=== PATIENT | female | born 1945 | race Caucasian/White ===

== ENCOUNTER 2018-11-10 06:37 | Inpatient (IN) ==
--- NOTE | 2018-11-02 16:31 | PAT Medication Instructions ---
Medication Instructions Date of Service November 02, 2018 Home Medications acetaminophen [Tylenol] 650 mg PO Q6H NEEDED adalimumab [Humira] 1 dose SUBCUT DIRECTED alendronate 70 mg PO WK aspirin [Aspir-81] 81 mg PO HS atorvastatin 20 mg PO HS calcium carbonate-vitamin D3 2 tab PO HS cholecalciferol (vitamin D3) 4,000 unit PO HS clomipramine 75 mg PO HS docusate sodium [Stool Softener] 100 mg PO QAM ibuprofen [Advil] 400 mg PO QID NEEDED leflunomide 20 mg PO QAM levothyroxine 25 mcg PO QAM meloxicam 15 mg PO Q2D multivitamin 1 tab PO HS phenylephrine HCl [Zia-Synephrine] 2 spray INTRANASAL DAILY NEEDED sennosides-docusate sodium [Stool Softener-Laxative] 1 tab PO QAM turmeric 500 mg PO HS tramadol 50 mg PO Q6H as needed Continue as directed adalimumab [Humira] 1 dose SUBCUT DIRECTED alendronate 70 mg PO WK ASK your surgeon for instructions ibuprofen [Advil] 400 mg PO QID NEEDED meloxicam 15 mg PO Q2D ASK your prescriber and surgeon aspirin [Aspir-81] 81 mg PO HS leflunomide 20 mg PO QAM STOP taking 2 weeks before surgery turmeric 500 mg PO HS DO NOT take the morning of surgery docusate sodium [Stool Softener] 100 mg PO QAM phenylephrine HCl [Zia-Synephrine] 2 spray INTRANASAL DAILY NEEDED sennosides-docusate sodium [Stool Softener-Laxative] 1 tab PO QAM Take morning of surgery With a small sip of water, OTHERWISE NOTHING TO EAT OR DRINK AFTER MIDNIGHT: acetaminophen [Tylenol] 650 mg PO Q6H NEEDED levothyroxine 25 mcg PO QAM tramadol 50 mg PO Q6H as needed Take evening before surgery acetaminophen [Tylenol] 650 mg PO Q6H NEEDED atorvastatin 20 mg PO HS calcium carbonate-vitamin D3 2 tab PO HS cholecalciferol (vitamin D3) 4,000 unit PO HS multivitamin 1 tab PO HS clomipramine 75 mg PO HS tramadol 50 mg PO Q6H as needed Other Notes If you have any questions please call us at [phone] or [phone] or [phone] or [phone]
--- NOTE | 2018-11-03 10:51 | Anesthesiology Consultation ---
Date of Service November 03, 2018 Assessment & Plan (1) Encounter for pre-operative examination: Chart Review Chart Review: Acceptable Risk for Surgery and Patient seen in Pre Admission Testing Consults Requested none Note sent to PCP re: anemia and EKG. (11/04) Response from PCP on 11/04 states that patient has known anemia that is stable compared to labs from 07/2018. Patients EKG is stable when compared to EKG's from 10/29. Patient also had repeat labs on 11/04 and sodium increased to 133. Teaching & Discussion Pre-Anesthesia Teaching/Discussion Notes: Instructed NPO after midnight before surgery, except medications with 15 cc of water. Medication instructions provided according to the PAT guidelines. History Surgery Operation Date: 11/10/18 10:05 Proposed Procedures p L1-L2 Lumbar Decompression - Steve Chavarria DO Height/Weight Height: 5 ft 1 in Weight: 48.1 kg Allergies Allergy/AdvReac Type Severity Reaction Status Date / Time No Known Allergies Allergy Verified 10/30/18 09:47 Medications Home Medications Medication Instructions Recorded Confirmed Last Taken acetaminophen [Tylenol] 650 mg PO Q6H PRN 10/30/18 10/30/18 Unknown adalimumab [Humira] 1 dose SUBCUT UD 10/30/18 10/30/18 Unknown alendronate 70 mg PO WK 10/30/18 10/30/18 Unknown aspirin [Aspir-81] 81 mg PO HS 10/30/18 10/30/18 Unknown atorvastatin 20 mg PO HS 10/30/18 10/30/18 Unknown calcium carbonate-vitamin D3 2 tab PO HS 10/30/18 10/30/18 Unknown [Calcium 600 + D(3)] cholecalciferol (vitamin D3) 4,000 unit PO HS 10/30/18 10/30/18 Unknown [Vitamin D3] clomipramine 75 mg PO HS 10/30/18 10/30/18 Unknown docusate sodium [Stool Softener] 100 mg PO QAM 10/30/18 10/30/18 Unknown ibuprofen [Advil] 400 mg PO QID PRN 10/30/18 10/30/18 Unknown leflunomide 20 mg PO QAM 10/30/18 10/30/18 Unknown levothyroxine 25 mcg PO QAM 10/30/18 10/30/18 Unknown meloxicam 15 mg PO Q2D 10/30/18 10/30/18 Unknown multivitamin 1 tab PO HS 10/30/18 10/30/18 Unknown phenylephrine HCl [Zia-Synephrine 2 spray INTRANASAL DAILY PRN 10/30/18 Unknown (phenylephrine)] sennosides-docusate sodium [Stool 1 tab PO QAM 10/30/18 10/30/18 Unknown Softener-Laxative] turmeric 500 mg PO HS 10/30/18 10/30/18 Unknown tramadol 50 mg PO Q6H PRN 11/03/18 11/03/18 Unknown Past Medical History Medical History Anemia HX Back pain PAIN TO LEFT LEG/FOOT Depression Hiatal hernia History of tooth extraction WISDOM TEETH Hyperlipidemia Hypotension HX Hypothyroidism Nausea and vomiting after administration of anesthetic agent OCD (obsessive compulsive disorder) Ovarian cyst REMOVAL Rheumatoid arthritis SOB (shortness of breath) on exertion Past Family History Family History Grandmother (Paternal) Family history of diabetes mellitus Father Family history of diabetes mellitus Past Surgical History Surgical History History of appendectomy History of bilateral tubal ligation History of cataract surgery R/L History of colonoscopy History of dilatation and curettage X 2 History of foot surgery RIGHT FOOT HAMMERTOES REPAIR Past Anesthesia History No Hx of Anesthesia Complications and No Family Hx of Anesthesia Complications History of PONV Yes Motion Sickness Screening History of Motion Sickness: No Social History Smoking Status: Never smoker Do You Dip or Chew Tobacco: No Hx Alcohol Use: No Hx Substance Use: No Exercise / Class Metabolic Activity II 4-5 Yardwork/Stairs/Walk up hill ([place] in the summer. Was going to the gym 3x week since mid September. Able to climb FOS. Denies CP (other than from hiatal hernia). Does get SOB with activity. ) Review of Systems Patient denies chest pain, shortness of breath, reflux, cough, wheezing, palpitations. +HECK +joint pain (knees, hands) Physical Exam Vital Signs BP: 137/91 P: 78 R: 20 T: 97.9 SPO2: 98% on RA Constitutional anxious ENMT Mouth: + dental restorations Thyromental Distance: < 3.5 Finger Breadths (2.5) Mallampati Class: III Neck normal visual inspection and trachea midline; neck extension not limited Respiratory normal respiratory effort Auscultation: lungs clear to auscultation bilaterally Cardiovascular Rate/Rhythm: regular rate and regular rhythm Heart Sounds: no murmur Vessels: no carotid bruit Neurologic moves all extremities Psychiatric Orientation: alert and oriented x 3 Testing Electrocardiogram Date: 11/03/18 Findings: + NSR @ (74) Left anterior fascicular block. Nonspecific T wave abnormality. Chest X-Ray Date: 11/03/18 Findings: + NAD FINDINGS: Cardiomediastinal and hilar silhouettes are within normal limits. Calcification the thoracic aortic arch. Lungs are hyperinflated. There is no pneumothorax, pleural effusion, focal airspace consolidation or overt pulmonary edema. Degenerative changes of the shoulders and spine with demineralized appearance of the bones. IMPRESSION: Hyperinflation without acute process. Echocardiogram Date: 01/08/18 EF: 55% LV Function: normal Normal LV size and systolic function. Thickened aortic valve leaflets with no significant stenosis or regurgitation. Normal RV size and function. Stress Test Date: 12/22/17 Type: exercise Findings: + WNL Resting EF: 55-60% Resting LV Function: normal Resting RWMA: + none Valvular Disease: no significant valvular disease The patient exercised on the Claude protocol for 4 minutes and 15 seconds, achieving 7 METs. Achieved 98% MPHR. No significant ST segment deviations or arrhythmias. Did have left sided chest discomfort at rest, which did not change during exercise. She had increasing shortness of breath and fatigue during exercise which caused her to stop exercise. Has a reduced exercise tolerance. No ECG evidence of ischemia. No echocardiographic evidence of prior infarction or ischemia. Cervical Spine Date: 11/03/18 IMPRESSION: No evidence of dynamic subluxation on flexion or extension positioning. No abnormal widening of the predental interval. Mild degenerative changes at C5-6. Laboratory Results 11/03/18 12:14 11/03/18 12:14 Blood Type O Positive 11/03/18 12:14 Antibody Screen NEGATIVE 11/03/18 12:14 PT 10.2 Seconds (9.0-12.0) 11/03/18 12:14 INR 1.0 (0.9-1.1) 11/03/18 12:14 APTT 24.6 Seconds (21.0-31.0) 11/03/18 12:14 Urine Color Yellow 11/03/18 Unknown Urine Appearance Clear (Clear) 11/03/18 Unknown Urine pH 7.5 (4.5-7.5) 11/03/18 Unknown Ur Specific [place] 1.007 (1.000-1.030) 11/03/18 Unknown Urine Protein Negative (Negative) 11/03/18 Unknown Urine Glucose (UA) Negative (Negative) 11/03/18 Unknown Urine Ketones Negative (Negative) 11/03/18 Unknown Urine Nitrite Negative (Negative) 11/03/18 Unknown Ur Leukocyte Esterase 1+ (Negative) H 11/03/18 Unknown Urine WBC (Auto) 1-5 /hpf (0-5) 11/03/18 Unknown Urine RBC (Auto) 0-4 /hpf (0-4) 11/03/18 Unknown U Hyaline Cast (Auto) 1-5 /lpf (0-5) 11/03/18 Unknown U Epithel Cells (Auto) 20-30 /lpf (0-5) H 11/03/18 Unknown Urine Bacteria (Auto) Negative (Negative) 11/03/18 Unknown
--- NOTE | 2018-11-03 12:48 | XRay Report ---
XR chest Pre-admission PA/Lat HISTORY: 73 years-old Female PAT preoperative exam. No acute chest complaints COMPARISON: None available TECHNIQUE: PA and lateral views of the chest FINDINGS: Cardiomediastinal and hilar silhouettes are within normal limits. Calcification the thoracic aortic a rch. Lungs are hyperinflated. There is no pneumothorax, pleural effusion, focal airspace consolidatio n or overt pulmonary edema. Degenerative changes of the shoulders and spine with demineralized appear ance of the bones. IMPRESSION: Hyperinflation without acute process. The above report was generated using voice recognition software. It may contain grammatical, syntax o r spelling errors. Electronically signed by: Harrison Vann M.D. 11/03/2018 12:46 PM
[2018-11-03 13:03] LABS: Appearance Urine Clear (Clear); Bacteria Urine Automated Negative (Negative); Bilirubin Urine Negative (Negative); Color Urine Yellow; Epithelial Cell Urine Auto 20-30 /lpf (0-5); Glucose Urine UA Negative (Negative); Ketones Urine Negative (Negative); Leukocyte Esterase Urine 1+ (Negative); Nitrite Urine Negative (Negative); Protein Urine Negative (Negative); Specific Gravity Urine 1.007 (1.000-1.030); Urobilinogen Urine Negative (Negative); pH Urine 7.5 (4.5-7.5)
[2018-11-03 13:03] LABS: Basophils # (auto) 0.08 K/uL (0-0.2); Basophils % (auto) 1.8 %; Eosinophils # (auto) 0.13 K/uL (0-0.5); Eosinophils % (auto) 2.8 %; Hematocrit (blood only) 30.6 % (37-47); Hemoglobin 10.4 g/dL (12.0-16.0); Immature Granulocytes # (auto) 0.01 K/uL (0.00-0.02); Immature Granulocytes % (auto) 0.2 %; Lymphocytes # (auto) 1.16 K/uL (1.2-3.4); Lymphocytes % (auto) 25.4 %; Mean Corpuscular Volume 101.7 fL (80-100); Mean Platelet Volume 8.9 fL (7.4-10.4); Monocytes # (auto) 0.82 K/uL (0.11-0.59); Monocytes % (auto) 17.9 %; Neutrophils # (auto) 2.37 K/uL (1.4-6.5); Neutrophils % (auto) 51.9 %; Platelet Count 229 K/uL (130-400); RDW Coefficient of Variation 13.7 % (11.5-14.5); RDW Standard Deviation 50.7 fL (36.4-46.3); Red Blood Count 3.01 M/uL (4.2-5.4); White Blood Count 4.57 K/uL (4.8-10.8)
[2018-11-03 13:09] LABS: Calcium 9.3 mg/dl (8.5-10.1); Est GFR (African American) 85.4; Est GFR (Non-African American) 73.7
[2018-11-03 13:18] LABS: Partial Thromboplastin Ratio 0.9; Partial Thromboplastin Time 24.6 Seconds (21.0-31.0); Prothrombin Time 10.2 Seconds (9.0-12.0)
--- NOTE | 2018-11-03 13:46 | XRay Report ---
XR cervical spine 2 or 3V CLINICAL HISTORY: 73 years-old Female presenting with preoperative assessment, RA. TECHNIQUE: Lateral views of the cervical spine in neutral, flexion, extension positioning were obtain ed. COMPARISON: None. FINDINGS: Neutral lateral view of the cervical spine demonstrate slight straightening of normal cervical lordos is. Vertebral bodies maintain normal height and alignment. Moderate intervertebral disc height loss a t C5-6, where there is the greatest degree of degenerative change with a disc osteophyte complex. No posterior bony spurring. No significant facet arthropathy. Normal predental interval. No prevertebral soft tissue swelling. No radiographic evidence of fracture. On flexion positioning, expected slight reversal of normal cervical lordosis with slight kyphotic cur vature. No evidence of dynamic subluxation. No widening of the predental interval. On extension positioning, expected slight exaggeration of normal cervical lordosis. No evidence of dy namic subluxation. No widening of the predental interval. IMPRESSION: No evidence of dynamic subluxation on flexion or extension positioning. No abnormal widening of the p redental interval. Mild degenerative changes at C5-6. Electronically signed by: Harvinder Kyle M.D. 11/03/2018 1:45 PM
[~2018-11-10 06:37] MED LIST: ACETAMINOPHEN 500 MG TAB PO SCH; CEFAZOLIN 1000MG 1,000 MG/7.5 ML SYR IV SCH; CeleBREX 200 MG CAP PO SCH; GABAPENTIN 300 MG PO SCH; LR 15ML/HR IV SCH
[2018-11-10] MEDS ORDERED: ONDANSETRON INJ 2 MG/ML 2 ML VIAL ONE (09:06)
[2018-11-10] MEDS ORDERED: LIDOCAINE HCL 2% 2 ML VIAL/AMP(20MG/ML) INFIL ONE (09:06)
[2018-11-10] MEDS ORDERED: fentaNYL citrate 100 MCG/2 ML VIAL ONE ×2 (09:06→12:06)
[2018-11-10] MEDS ORDERED: CISATRACURIUM BESYLATE IV SOLN 2 MG/ML 10 ML VIAL IV ONE (09:06)
[2018-11-10] MEDS ORDERED: DEXAMETHASONE SOD INJ 4 MG/ML VIAL ONE ×2 (09:06)
[2018-11-10] MEDS ORDERED: PROPOFOL IV EMULSION 10 MG/ML 20 ML VIAL IV ONE (09:06)
[2018-11-10] MEDS ORDERED: MIDAZOLAM HCL 1 MG/ML 2ML VIAL ONE (09:06)
--- NOTE | 2018-11-10 10:07 | History & Physical Bridge Note ---
Date of Service November 10, 2018 History & Physical Bridge Note I have examined the patient, reviewed the History & Physical and in the interval since the performance of the History & Physical I have noted the following changes of clinical significance: no changes noted
--- NOTE | 2018-11-10 10:08 | History & Physical Report ---
Date of Service November 10, 2018 Assessment & Plan (1) Lumbar disc herniation with radiculopathy: Lumbar decompression and fusion L1 -2 Present on Admission?: Yes History of Present Illness Chief Complaint: Back and leg pain Primary Care Provider: Melissa Kline This is a 73-year-old female with chronic persistent left leg and back pain. After failing extensive course of nonoperative care is here for surgical intervention. Allergies Allergy/AdvReac Type Severity Reaction Status Date / Time No Known Allergies Allergy Verified 11/10/18 07:43 Home Medications Home Medications Medication Instructions Recorded Confirmed Type acetaminophen [Tylenol] 650 mg PO Q6H PRN 10/30/18 11/10/18 History adalimumab [Humira] 1 dose SUBCUT UD 10/30/18 11/10/18 History alendronate 70 mg PO WK 10/30/18 11/10/18 History aspirin [Aspir-81] 81 mg PO HS 10/30/18 11/10/18 History atorvastatin 20 mg PO HS 10/30/18 11/10/18 History calcium carbonate-vitamin D3 2 tab PO HS 10/30/18 11/10/18 History [Calcium 600 + D(3)] cholecalciferol (vitamin D3) 4,000 unit PO HS 10/30/18 11/10/18 History [Vitamin D3] clomipramine 75 mg PO HS 10/30/18 11/10/18 History docusate sodium [Stool Softener] 100 mg PO QAM 10/30/18 11/10/18 History ibuprofen [Advil] 400 mg PO QID PRN 10/30/18 11/10/18 History leflunomide 20 mg PO QAM 10/30/18 11/10/18 History levothyroxine 25 mcg PO QAM 10/30/18 11/10/18 History meloxicam 15 mg PO Q2D 10/30/18 11/10/18 History multivitamin 1 tab PO HS 10/30/18 11/10/18 History phenylephrine HCl [Zia-Synephrine 2 spray INTRANASAL DAILY PRN 10/30/18 History (phenylephrine)] sennosides-docusate sodium [Stool 1 tab PO QAM 10/30/18 11/10/18 History Softener-Laxative] turmeric 500 mg PO HS 10/30/18 11/10/18 History tramadol 50 mg PO Q6H PRN 11/03/18 11/10/18 History benzonatate 100 mg PO QID PRN 11/10/18 11/10/18 History dextromethorphan-guaifenesin 20 ml PO Q6H PRN 11/10/18 11/10/18 History [Robitussin Cough-Chest Néstor DM] Past Med/Surg History Social History Current Living Situation: Spouse Other Information That Helps Us Care for You: No Feels Safe at Home: Yes Safety Concerns: Feels Safe At This Time Smoking Status: Never smoker Do You Dip or Chew Tobacco: No Hx Alcohol Use: No Hx Substance Use: No Beliefs That Will Affect Care: None Preferred Language: Pashto Communication Ability: Effective Clearing Hand Required: No Physical Exam 2 Vital Signs (Past 24 Hours): Last Vital Signs Temp 36.5 C 11/10/18 07:59 Pulse 92 H 11/10/18 07:59 Resp 18 11/10/18 07:59 BP 150/98 H 11/10/18 07:59 Pulse Ox 99 11/10/18 07:59 Results & Data Medications Administered Acetaminophen (Tylenol) 1,000 mg PO PREOP ANANDA Stop: 11/10/18 18:00 Last Admin: 11/10/18 08:18 Dose: 1,000 mg Celecoxib (Celebrex) 200 mg PO PREOP ANANDA Stop: 11/10/18 18:00 Last Admin: 11/10/18 08:18 Dose: 200 mg Gabapentin (Neurontin) 300 mg PO PREOP ANANDA Stop: 11/10/18 18:00 Last Admin: 11/10/18 08:17 Dose: 300 mg Lactated Ringer's (Lr) 1,000 mls @ 15 mls/hr IV .Q24H ANANDA Stop: 11/11/18 05:59 Last Admin: 11/10/18 08:05 Dose: 15 mls/hr
[2018-11-10] MEDS ORDERED: BACITRACIN INJ 50,000 UNIT VIAL ONE (10:12)
[2018-11-10] MEDS ORDERED: BUPIVACAINE/EPINEPHRINE 0.5% MPF 1:200,000 30 ML VIAL ONE (10:12)
[2018-11-10] MEDS ORDERED: GLYCOPYRROLATE 0.2 MG/ML VIAL ONE (11:01)
[2018-11-10] MEDS ORDERED: NEOSTIGMINE METHYLSULFATE 1 MG/ML 10ML VIAL ONE (11:01)
[2018-11-10] MEDS ORDERED: FLOSEAL HEMOSTATIC MATRIX 10ML TOP ONE (12:15)
[2018-11-10] MEDS ORDERED: PROMETHAZINE HCL 12.5 MG in SODIUM CHLORIDE 0.9% 50 ML IV PRN ×2 (12:21→13:48)
[2018-11-10] MEDS ORDERED: LABETALOL HCL IV 5 MG/ML 20ML IV PRN (12:21)
[2018-11-10] MEDS ORDERED: HYDROmorphone INJ 1 MG/ML SYRINGE IV PRN (12:21)
[2018-11-10] MEDS ORDERED: ATROPINE SULFATE 0.1 MG/ML 10ML SYR IV PRN (12:21)
[2018-11-10] MEDS ORDERED: FLUMAZENIL 0.1 MG/1 ML 10 ML VIAL IV PRN (12:21)
[2018-11-10] MEDS ORDERED: NALOXONE HCL 0.4 MG/1 ML VIAL/CARP IV PRN (12:21)
[2018-11-10] MEDS ORDERED: ONDANSETRON INJ 2 MG/ML 2 ML VIAL IV PRN ×2 (12:21→13:48)
[2018-11-10] MEDS ORDERED: ePHEDrine sulfate 50 MG/ML AMP IV PRN (12:21)
--- NOTE | 2018-11-10 12:25 | Operative Report ---
Post Operative Report Pre & Post Diagnosis Operation Date: 11/10/18 09:35 Pre-Op Diagnosis: Intervertebral Disc Disorders with Radiculopathy Post-Op Diagnosis: Intervertebral Disc Disorders with Radiculopathy Procedure Operation Date: 11/10/18 09:35 Actual Procedures #1 lumbar decompression medial facetectomy discectomy L1-2. #2 posterior spinal fusion L1-2. #3 patient posterior instrumentation L1-2. #4 history of local autograft in the posterior gutters. #5 placement infuse collagen sponge bone mass graft in the posterior gutters at L1-2. Surgeon Steve Chavarria DO [employer] None Estimated Blood Loss 150 Findings Consistent with Post-Op Diagnosis Specimens None Description of Procedure Patient was met with preoperatively case discussed all questions addressed. After informed consent obtained patient was taken to the operative suite underwent intubation and placed in a prone position on the Panda all bony prominences well-padded eyes inspected to ensure no external pressure placed upon the peer at this point the lumbar spine was prepped and draped in a normal sterile fashion. Sharp dissection the assistance of Bovie cautery was performed down to and exposing the lamina and transverse processes of L1-2. From caudal cephalad fashion complete laminectomy of L1-L2 including medial facetectomies foraminotomies also addressing massive disc herniation on the left side that is migrated cephalad. After this complete pedicle screws were placed at L1 and L2 bilaterally with assistance of fluoroscopy and process sophie locked in place. The transverse processes of L1 and L2 burred to subcortical B bone. Infuse collagen sponge mass graft local autograft placed in the posterior gutters. 15 round REMI drain inserted. Incision was then closed with 1 Vicryl fascia 2-0 Vicryl subtenons seen for Monocryl for final skin closure. Steri-Strips sterile dressing placed. Patient will continue to PACU stable condition. I attest to the content of the Intraoperative Record and any orders documented therein. Any exceptions are noted below.
--- NOTE | 2018-11-10 12:41 | Fluoroscopy Report ---
FL lumbar spine 2-3V CLINICAL HISTORY: 73 years-old Female presenting with L1-L2 LUMBAR DECOMPRESSION. TECHNIQUE: 2 fluoroscopic image(s) recorded as part of an intraoperative procedure. COMPARISON: None. FINDINGS/IMPRESSION: Posterior bilateral transpedicular screw and sophie fixation of L1-2 with L1 laminectomy. Levoscoliosis centered at L3-4. Please see surgical report for further details. Fluoroscopy dosage (mGy): 5.08. Fluoroscopy time: 21.4 seconds. Number or time of fluoroscopic spot images: 0. Electronically signed by: Harvinder Kyle M.D. 11/10/2018 12:40 PM
[2018-11-10] MEDS ORDERED: LABETALOL HCL IV 5 MG/ML 20ML IV ONE (12:54)
--- NOTE | 2018-11-10 13:38 | Anesthesiology Progress Note ---
Date of Service November 10, 2018 Anesthesia Post Procedure Vital Signs Vital Signs: Temp Pulse Pulse Resp BP Pulse Ox 11/10/18 13:15 36.2 C L 67 26 H 143/87 H 100 11/10/18 13:05 64 20 151/86 H 100 11/10/18 12:55 86 18 170/96 H 100 11/10/18 12:45 36.7 C 87 10 L 169/89 H 100 11/10/18 07:59 36.5 C 92 H 18 150/98 H 99 Notes Mental Status: alert / awake / arousable Patient Amnestic to Procedure: Yes Nausea / Vomiting: adequately controlled Pain: adequately controlled Airway Patency, RR, SpO2: stable & adequate BP & HR: stable & adequate Hydration State: stable & adequate Anesthetic Complications: no major complications apparent
[2018-11-10] MEDS ORDERED: HYDROmorphone INJ 0.5 MG/0.5 ML SYR IV PRN (13:48)
[2018-11-10] MEDS ORDERED: ACETAMINOPHEN 500 MG TAB PO PRN (13:48)
[2018-11-10] MEDS ORDERED: ALUMINUM/MAGNESIUM SUSP 30 ML UDC PO PRN (13:48)
[2018-11-10] MEDS ORDERED: METOCLOPRAMIDE HCL INJ 5 MG/ML 2 ML VIAL IV PRN (13:48)
[2018-11-10] MEDS ORDERED: LORazepam 0.5 MG TAB PO PRN (13:48)
[2018-11-10] MEDS ORDERED: LORazepam 0.5 MG/1 ML VIAL IV PRN (13:48)
[2018-11-10] MEDS ORDERED: BENZONATATE 100 MG CAPSULE PO PRN (13:48)
[2018-11-10] MEDS ORDERED: SOD PHOSPHATE/SOD BIPHOSPHATE ENEMA 132 ML BTL PR PRN (13:48)
[2018-11-10] MEDS ORDERED: NON-FORMULARY MEDICATION (Acetaminophen [Tylenol] 650 MG) PO PRN (13:48)
[2018-11-10] MEDS ORDERED: ACETAMINOPHEN 1,000 MG/100 ML VIAL IV PRN (13:48)
[2018-11-10] MEDS ORDERED: BISACODYL 10 MG SUPP PR PRN (13:48)
[2018-11-10] MEDS ORDERED: GUAIFENESIN/DEXTROM SYRUP 200MG/20MG 10ML UDC PO PRN (13:48)
[2018-11-10] MEDS ORDERED: ONDANSETRON 4 MG TAB PO PRN (13:48)
[2018-11-10] MEDS ORDERED: OXYCODONE HCL IR 5 MG TAB (IMMEDIATE RELEASE) PO PRN (13:48)
[2018-11-10] MEDS ORDERED: PHENYLEPHRINE 1% NA SPR 15 ML BTL PRN (13:48)
[2018-11-10] MEDS ORDERED: DO NOT ADMINISTER PNEUMOCOCCAL VACCINE PRN (13:48)
[2018-11-10] MEDS ORDERED: DO NOT ADMINISTER FLU VACCINE PRN (13:48)
[2018-11-10] MEDS ORDERED: FAMOTIDINE 20 MG TAB PO PRN (13:48)
[2018-11-10] MEDS ORDERED: MAGNESIUM HYDROXIDE SUSP 30 ML UDC PO PRN (13:48)
[2018-11-10] MEDS ORDERED: TRAMADOL HCL 50 MG TABLET PO PRN (13:48)
[2018-11-10] MEDS: LACTATED RINGER'S 1,000 ML IV SCH ×2 (15:15→20:42)
[2018-11-10] MEDS: CEFAZOLIN 1000MG 1,000 MG/7.5 ML SYR IV SCH (17:30)
[2018-11-10] MEDS: CALCIUM 600MG + VIT D 400 IU TAB PO SCH (20:40)
[2018-11-10] MEDS: ATORVASTATIN 20 MG TAB PO SCH (20:41)
[2018-11-10] MEDS: ASPIRIN 81 MG ECTAB PO SCH (20:41)
[2018-11-10] MEDS: MULTIVITAMIN TAB PO SCH (20:41)
[2018-11-10] MEDS ORDERED: DOCUSATE SODIUM/SENNA 50/8.6MG TAB PO SCH (21:00)
[2018-11-10] MEDS ORDERED: TURMERIC 500 MG PO SCH (21:00)
[2018-11-11] MEDS: CEFAZOLIN 1000MG 1,000 MG/7.5 ML SYR IV SCH (02:20)
[2018-11-11] MEDS: TRAMADOL HCL 50 MG TABLET PO PRN ×3 (02:25→18:22)
[2018-11-11] MEDS: LEVOTHYROXINE SODIUM 25 MCG TABLET PO SCH (05:27)
[2018-11-11] MEDS: POLYETHYLENE (MIRALAX) 17 GM PACK PO SCH ×3 (05:28→18:23)
[2018-11-11] MEDS ORDERED: ALENDRONATE SODIUM 70 MG TAB PO SCH (06:00)
[2018-11-11 07:35] LABS: Basophils # (auto) 0.01 K/uL (0-0.2); Basophils % (auto) 0.1 %; Eosinophils # (auto) 0.03 K/uL (0-0.5); Eosinophils % (auto) 0.3 %; Hematocrit (blood only) 24.6 % (37-47); Hemoglobin 8.1 g/dL (12.0-16.0); Immature Granulocytes # (auto) 0.02 K/uL (0.00-0.02); Immature Granulocytes % (auto) 0.2 %; Lymphocytes # (auto) 1.36 K/uL (1.2-3.4); Lymphocytes % (auto) 15.1 %; Mean Corpuscular Hgb Conc 32.9 g/dL (32-36); Mean Corpuscular Volume 102.5 fL (80-100); Mean Platelet Volume 8.8 fL (7.4-10.4); Monocytes # (auto) 1.17 K/uL (0.11-0.59); Neutrophils # (auto) 6.43 K/uL (1.4-6.5); Neutrophils % (auto) 71.3 %; Platelet Count 225 K/uL (130-400); RDW Coefficient of Variation 14.1 % (11.5-14.5); RDW Standard Deviation 52.4 fL (36.4-46.3); White Blood Count 9.02 K/uL (4.8-10.8)
[2018-11-11 08:02] LABS: BUN Creatinine Ratio 17.4 (10-20); Calcium 8.7 mg/dl (8.5-10.1); Creatinine Clr Calc Pharmacy 43.4 ml/min; Est GFR (African American) 79.3; Est GFR (Non-African American) 68.5; Potassium 4.2 mmol/L (3.5-5.1)
[2018-11-11 08:03] LABS: Macrocytosis Present
[2018-11-11] MEDS: MELOXICAM 7.5 MG TAB PO SCH (08:37)
[2018-11-11] MEDS: DOCUSATE SODIUM/SENNA 50/8.6MG TAB PO SCH (08:38)
[2018-11-11] MEDS: LEFLUNOMIDE 10 MG TAB PO SCH (08:38)
[2018-11-11] MEDS: DOCUSATE SODIUM 100 MG CAP PO SCH (08:38)
[2018-11-11] MEDS ORDERED: Nursing to Pharmacy Communication ONE (12:20)
--- NOTE | 2018-11-11 14:19 | Orthopedic Progress Note ---
Date of Service November 11, 2018 Assessment & Plan (1) Lumbar disc herniation with radiculopathy: This time we will continue physical therapy monitor her REMI output anticipate discharge home in the next few days. Present on Admission?: Yes Subjective Back pain is controlled still some left leg pain but improved. Physical Exam 2 Vital Signs (Past 24 Hours): Last Vital Signs Temp 36.6 C 11/11/18 10:38 Pulse 89 11/11/18 10:38 Resp 16 11/11/18 10:38 BP 101/64 11/11/18 10:38 Pulse Ox 99 11/11/18 12:50 Physical Exam: Patient is in the chair at the bedside. Has good strength testing.
[2018-11-11] MEDS: ASPIRIN 81 MG ECTAB PO SCH (20:29)
[2018-11-11] MEDS: CALCIUM 600MG + VIT D 400 IU TAB PO SCH (20:29)
[2018-11-11] MEDS: CLOMIPRAMINE 75 MG PO SCH (20:30)
[2018-11-11] MEDS: MULTIVITAMIN TAB PO SCH (20:30)
[2018-11-11] MEDS: ATORVASTATIN 20 MG TAB PO SCH (20:30)
[2018-11-12] MEDS: POLYETHYLENE (MIRALAX) 17 GM PACK PO SCH ×4 (00:03→18:03)
[2018-11-12] MEDS: LEVOTHYROXINE SODIUM 25 MCG TABLET PO SCH (05:58)
--- NOTE | 2018-11-12 08:38 | Orthopedic Progress Note ---
Date of Service November 12, 2018 Assessment & Plan (1) Lumbar disc herniation with radiculopathy: We will continue physical therapy today. Monitor REMI output. Anticipate possible discharge home tomorrow. Present on Admission?: Yes Subjective Back pain is controlled leg symptoms steadily improving. Physical Exam 2 Vital Signs (Past 24 Hours): Last Vital Signs Temp 36.6 C 11/12/18 07:03 Pulse 85 11/12/18 07:03 Resp 18 11/12/18 07:03 BP 102/67 11/12/18 07:03 Pulse Ox 97 11/12/18 07:03 Physical Exam: Patient is sitting up at the bedside. Has good strength testing. Appears comfortable.
[2018-11-12] MEDS: DOCUSATE SODIUM 100 MG CAP PO SCH (08:50)
[2018-11-12] MEDS: DOCUSATE SODIUM/SENNA 50/8.6MG TAB PO SCH (08:50)
[2018-11-12] MEDS: LEFLUNOMIDE 10 MG TAB PO SCH (08:51)
[2018-11-12] MEDS: TRAMADOL HCL 50 MG TABLET PO PRN ×2 (08:53→21:15)
[2018-11-12] MEDS: ATORVASTATIN 20 MG TAB PO SCH (21:09)
[2018-11-12] MEDS: MULTIVITAMIN TAB PO SCH (21:09)
[2018-11-12] MEDS: CALCIUM 600MG + VIT D 400 IU TAB PO SCH (21:10)
[2018-11-12] MEDS: CLOMIPRAMINE 75 MG PO SCH (21:10)
[2018-11-12] MEDS: ASPIRIN 81 MG ECTAB PO SCH (21:10)
[2018-11-13] MEDS: POLYETHYLENE (MIRALAX) 17 GM PACK PO SCH ×2 (00:03→06:05)
[2018-11-13] MEDS: LEVOTHYROXINE SODIUM 25 MCG TABLET PO SCH (06:05)
[2018-11-13] MEDS ORDERED: Nursing to Pharmacy Communication ONE (08:13)
[2018-11-13] MEDS: MELOXICAM 7.5 MG TAB PO SCH (08:41)
[2018-11-13] MEDS: DOCUSATE SODIUM 100 MG CAP PO SCH (08:41)
[2018-11-13] MEDS: DOCUSATE SODIUM/SENNA 50/8.6MG TAB PO SCH (08:42)
[2018-11-13] MEDS: LEFLUNOMIDE 10 MG TAB PO SCH (08:42)
[2018-11-13] MEDS: TRAMADOL HCL 50 MG TABLET PO PRN (11:33)
--- NOTE | 2018-11-13 11:50 | Discharge Summary ---
Date of Service November 13, 2018 Admission HPI Per Admitting Provider This is a 73-year-old female with chronic persistent left leg and back pain. After failing extensive course of nonoperative care is here for surgical intervention. Principal Diagnosis Lumbar spinal stenosis Discharge Data Allergies Allergy/AdvReac Type Severity Reaction Status Date / Time No Known Allergies Allergy Verified 11/10/18 07:43 Consultations 11/10/18 13:48 Consult Case Management - Discharge Planning Routine Procedures Performed Operation Date: 11/10/18 09:35 Actual Procedures p L1-L2 Lumbar Decompression and Fusion, Bone Morphogenetic Protein(Not Applicable) - Steve Chavarria DO Ordered Studies 11/10/18 09:35 FL fluoroscopy <1hr Routine FL lumbar spine 2-3V Routine Hospital Course (1) Lumbar disc herniation with radiculopathy: Patient underwent lumbar decompression fusion tolerated this well was taken to orthopedic floor postoperative. Postop day #1 she was up and ambulate nicely. She progressed to postop day #2. Subsequently postop day #3 REMI drain decreased appropriately pain well controlled subsequently discharged home. Total Time Total Time Spent Total Time Spent (In Minutes): Not applicable Discharge Plan Discharge Items Patient Disposition: Home - Self-Care Reason For Visit: Intervertebral Disc Disorders with Radiculopathy Discharge Diagnosis: lumbar stenosis Discharge Goals: Improve function Activity: Per 'Additional Instructions' section Non-emergency contact: Primary Care Provider Call non-emergency contact if: you have any medication questions Follow-up/Referrals: Melissa Kline M.D. [Primary Care Provider] - Diet: Regular Addtl Provider Instructions: ACTIVITY RECOMMENDATIONS: SELF CARE INSTRUCTIONS AFTER THORACIC/LUMBAR FUSIONS 1. You may walk to your tolerance. It is good exercise for your legs and back. Expect some back and intermittent leg aches and pains. 2. You may perform "counter-top" level activities (make a sandwich, nini with a project, etc.). 3. No bending or lifting of more than 10 pounds or back twisting of any nature (roll like a log when turning in bed). 4. You may ride in a car for 20-30 minutes at a time. No driving until after your first visit with your doctor. 5. Frequent changes of position and restricting sitting to 30 minutes at a time will help limit the amount of back spasms and stiffness you may experience. 6. You may discontinue the use of ambulatory aids (cane, crutches, etc.) once your strength and confidence allow. 7. You may dredging inspector the shower and let water strike your incision when you arrive home at least once daily. Do not take a tub bath, sit in a hot tub or go into a swimming pool until after your first recheck in the office. SPECIAL CARE INSTRUCTIONS: VERY IMPORTANT TO READ AND REVIEW A. Your surgical incision has been closed with a cosmetic suture under the skin that will dissolve in about 6 weeks. In 14 days, you can use a pair of clean scissors and cut the suture that is left outside of the skin at the ends of your incision. 1. The small skin tapes can be removed 7 days after surgery if they have not fallen off by that point. 2. You may keep the wound open to air as much as possible to promote healing after post-op day number 5 unless told otherwise by your doctor. 3. If you think the wound looks like it is becoming infected (redness or worsening drainage) and/or you are experiencing fever, chill or worsening back pain and muscle spasms, contact the office so that we may evaluate you as soon as possible. B. Complications are uncommon, but please contact us if you have any signs or symptoms of: 1. wound infection (fever higher than 102.5 degrees F, redness, separation of wound, drainage, or increasing pain from the incision) 2. blood clots in legs (pain, swelling, redness and warmth in legs) 3. urinary tract infection (fever higher than 102.5 degrees F, burning upon urination or increased frequency of urination) 4. nerve problems (inability to walk on your toes or heels, numbness, loss of bowel or bladder control) 5. any other symptoms that concern you C. Please call the office at if you have any concerns or questions about your operation or recovery. D. No smoking! Smoking drastically decreases the chance of a solid fusion. E. Do not take any anti-inflammatory medications (Indocin, Advil, Motrin, Aspirin, Naprosyn, etc.) as these may inhibit the chance of a solid fusion. Tylenol is okay to take for pain. MANAGING PAIN AFTER SPINAL SURGERY 1. Narcotic medication is intended for short-term use and will be provided for surgical pain. Surgical pain usually lasts for a period of 4-6 weeks. Narcotic medication includes Percocet, Vicodin, Darvocet, Tylenol #3 or Lortab. 2. Longer-term pain is more appropriately treated with non-narcotic medication such as Tylenol ES. 3. Muscle spasm is not appropriately treated with narcotics. Muscle relaxers such as Soma, Flexeril or Skelaxin can be used along with Tylenol ES. 4. Remember that we all live with some "aches and pains". This is not unusual or uncommon after an injury or as we get older. a. Back pain is expected and may include muscle spasms for 4 to 6 weeks after surgery. The pain should gradually improve. If the pain worsens for no apparent reason, please contact the office. b. Intermittent leg pain may also be experienced and should not be concerned about unless it worsens for no apparent reason. If so, please contact the office. 5. We will provide appropriate medication within the normal guidelines of their prescribed use. We will also be very cautious and aware of potential abuse and extended duration of patients' medication needs. a. Pain medications are for your comfort and to assist with sleep and rest so that the tissue can heal. They are not provided in order to return to normal activity and should not be used through the day. To do so or worsening pain at night can result from ongoing tissue damage and development of tolerance to the prescribed medicine. 6. Please allow 2-3 days to process refills. Prescriptions will not be mailed but must be picked up at the office. FOLLOW UP VISIT: Keep your scheduled follow-up appointment. Any questions, please call the office at . Prescriptions: New tramadol 50 mg Tablet 50 mg PO Q4H PRN (Reason: Pain, Moderate) Qty: 30 RF: 0 oxycodone 5 mg Tablet 5 mg PO Q4H PRN (Reason: Pain, Severe) Qty: 30 RF: 0 Continue multivitamin Tablet 1 tab PO HS RF: 0 atorvastatin 20 mg Tablet 20 mg PO HS RF: 0 clomipramine 75 mg Capsule 75 mg PO HS RF: 0 meloxicam 15 mg Tablet 15 mg PO Q2D RF: 0 alendronate 70 mg Tablet 70 mg PO WK RF: 0 sennosides-docusate sodium [Stool Softener-Laxative] 8.6-50 mg Tablet 1 tab PO QAM RF: 0 aspirin [Aspir-81] 81 mg Tablet,Delayed Release (Dr/Ec) 81 mg PO HS RF: 0 leflunomide 20 mg Tablet 20 mg PO QAM RF: 0 levothyroxine 25 mcg Tablet 25 mcg PO QAM RF: 0 docusate sodium [Stool Softener] 100 mg Capsule 100 mg PO QAM RF: 0 adalimumab [Humira] 40 mg/0.8 mL Syringe Kit 1 dose subcut UD RF: 0 acetaminophen [Tylenol] 325 mg Capsule 650 mg PO Q6H PRN (Reason: Pain) RF: 0 turmeric 400 mg Capsule 500 mg PO HS RF: 0 calcium carbonate-vitamin D3 [Calcium 600 + D(3)] 600 mg calcium- 200 unit Capsule 2 tab PO HS RF: 0 cholecalciferol (vitamin D3) [Vitamin D3] 2,000 unit Capsule 4,000 unit PO HS RF: 0 ibuprofen [Advil] 200 mg Tablet 400 mg PO QID PRN (Reason: Pain) RF: 0 phenylephrine HCl [Zia-Synephrine (phenylephrine)] 1 % [place],Non-Aerosol 2 spray Intranasal DAILY PRN (Reason: Congestion) RF: 0 tramadol 50 mg Tablet 50 mg PO Q6H PRN (Reason: Pain) RF: 0 benzonatate 100 mg Capsule 100 mg PO QID PRN (Reason: Cough) RF: 0 dextromethorphan-guaifenesin [Robitussin Cough-Chest Néstor DM] 5-50 mg/5 mL Liquid 20 ml PO Q6H PRN (Reason: Cough) RF: 0 Stand-Alone Forms: [facility], Opioid Pain Management Discharge Orders: Discharge Order (Routine); Ordered 11/13/18 Ordered By: Steve Chavarria Admission Data Admit Date/Time: 11/10/18 12:33 Attending Provider: Steve Chavarria Admit Provider: Steve Chavarria Primary Care Provider: Melissa Kline V. Service: Surgical Services Other Interventions: Discharge Summary Assessment (RN) Last Done: 11/13/18 08:49
== END 2018-11-13 12:30 | disposition home or self-care (01) | DRG 460 ==
LOC: EDBD → ASU 06:37 → 3E 12:33

== ENCOUNTER 2021-07-03 07:54 | Inpatient (IN) ==
--- NOTE | 2021-06-14 10:30 | PAT Medication Instructions ---
Medication Instructions Date of Service June 14, 2021 Home Medications acetaminophen 325 mg capsule (Tylenol) 650 mg PO Q6H PRN adalimumab 40 mg/0.8 mL subcutaneous syringe kit (Humira) 1 dose SUBCUT UD alendronate 70 mg tablet 70 mg PO WK aspirin 81 mg tablet,delayed release (Aspir-) 81 mg PO HS atorvastatin 20 mg tablet 20 mg PO HS calcium carbonate-vitamin D3 600 mg calcium-200 unit capsule (Calcium 600 + D(3)) 2 tab PO HS cholecalciferol (vitamin D3) 50 mcg (2,000 unit) capsule (Vitamin D3) 4,000 unit PO HS clomipramine 75 mg capsule 75 mg PO HS docusate sodium 100 mg capsule (Stool Softener) 100 mg PO QAM ibuprofen 200 mg tablet (Advil) 400 mg PO QID PRN leflunomide 20 mg tablet 20 mg PO QAM levothyroxine 25 mcg tablet 25 mcg PO QAM meloxicam 15 mg tablet 15 mg PO Q2D multivitamin 1 tab PO HS turmeric 400 mg capsule 500 mg PO HS Continue as directed alendronate 70 mg tablet 70 mg PO WK ASK your surgeon for instructions meloxicam 15 mg tablet 15 mg PO Q2D ASK your prescriber and surgeon aspirin 81 mg tablet,delayed release (Aspir-) 81 mg PO HS leflunomide 20 mg tablet 20 mg PO QAM STOP taking 2 weeks before surgery (or as soon as possible if surgery is within 2 weeks) turmeric 400 mg capsule 500 mg PO HS DO NOT take the morning of surgery docusate sodium 100 mg capsule (Stool Softener) 100 mg PO QAM Take morning of surgery With a small sip of water, OTHERWISE NOTHING TO EAT OR DRINK AFTER MIDNIGHT: acetaminophen 325 mg capsule (Tylenol) 650 mg PO Q6H PRN (okay to take up to 4 hours prior to surgery if needed) levothyroxine 25 mcg tablet 25 mcg PO QAM Take evening before surgery acetaminophen 325 mg capsule (Tylenol) 650 mg PO Q6H PRN (if needed) atorvastatin 20 mg tablet 20 mg PO HS calcium carbonate-vitamin D3 600 mg calcium-200 unit capsule (Calcium 600 + D(3)) 2 tab PO HS cholecalciferol (vitamin D3) 50 mcg (2,000 unit) capsule (Vitamin D3) 4,000 unit PO HS clomipramine 75 mg capsule 75 mg PO HS multivitamin 1 tab PO HS Other Notes If you have any questions please call us at [phone] or [phone] or [phone] or [phone]
--- NOTE | 2021-06-19 08:40 | Anesthesiology Consultation ---
Date of Service June 19, 2021 Assessment & Plan (1) Encounter for pre-operative examination: - COVID screening: Per assessment on 06/19: Travel screen negative, no known COVID-19 positive contacts or current COVID-19 related symptoms. Patient vacci anted. Surgeon arranging preop COVID testing. Awaiting results. - S/P L1-L2 lumbar decompression (11/10/18): Grade 2 view, MAC#3, ETT 7.0 at [facility] Chart Review Chart Review: Acceptable Risk for Surgery and Patient seen in Pre Admission Testing Teaching & Discussion Pre-Anesthesia Teaching/Discussion Notes: Instructed NPO after midnight before surgery,except medications with 15 cc of water. Medication instructions provided according to the PAT guidelines. History Surgery Operation Date: 07/03/21 07:45 Proposed Procedures p L2-S1 Decompression Fusion, L1-L2 Hardware Removal, Spinal Cord Monitoring - Steve Chavarria, Height/Weight Height: 5 ft 1 in Weight: 48.8 kg Allergies Allergy/AdvReac Type Severity Reaction Status Date / Time No Known Allergies Allergy Verified 06/12/21 10:38 Medications Home Medications Medication Instructions Recorded Confirmed Last Taken acetaminophen 325 mg capsule 650 mg PO Q6H PRN 10/30/18 06/12/21 11/09/18 12:00 (Tylenol) adalimumab 40 mg/0.8 mL 1 dose SUBCUT UD 10/30/18 06/12/21 10/24/18 11:00 subcutaneous syringe kit (Humira) alendronate 70 mg tablet 70 mg PO WK 10/30/18 06/12/21 11/04/18 08:00 aspirin 81 mg tablet,delayed 81 mg PO HS 10/30/18 06/12/21 11/02/18 17:00 release (Aspir-) atorvastatin 20 mg tablet 20 mg PO HS 10/30/18 06/12/21 11/09/18 20:00 calcium carbonate-vitamin D3 600 2 tab PO HS 10/30/18 06/12/21 11/05/18 17:00 mg calcium-200 unit capsule (Calcium 600 + D(3)) cholecalciferol (vitamin D3) 50 4,000 unit PO HS 10/30/18 06/12/21 11/05/18 17:00 mcg (2,000 unit) capsule (Vitamin D3) clomipramine 75 mg capsule 75 mg PO HS 10/30/18 06/12/21 11/09/18 21:00 docusate sodium 100 mg capsule 100 mg PO QAM 10/30/18 06/12/21 11/03/18 08:00 (Stool Softener) ibuprofen 200 mg tablet (Advil) 400 mg PO QID PRN 10/30/18 06/12/21 11/02/18 08:00 leflunomide 20 mg tablet 20 mg PO QAM 10/30/18 06/12/21 11/02/18 08:00 levothyroxine 25 mcg tablet 25 mcg PO QAM 10/30/18 06/12/21 11/10/18 04:00 meloxicam 15 mg tablet 15 mg PO Q2D 10/30/18 06/12/21 11/02/18 08:00 multivitamin 1 tab PO HS 10/30/18 06/12/21 11/05/18 17:00 turmeric 400 mg capsule 500 mg PO HS 10/30/18 06/12/21 11/02/18 17:00 Past Medical History Medical History Anemia chronic, hgb baseline 10's per chart review Back pain with radiation to LLE/foot Depression Hyperlipidemia Hypothyroidism OCD (obsessive compulsive disorder) Rheumatoid arthritis Primarily affecting hands Exercise / Class Metabolic Activity III < 4 Walking/Shop/Light housework (one FS (no CP, + SOB)) Past Family History Family History Grandmother (Paternal) Family history of diabetes mellitus Father Family history of diabetes mellitus Past Surgical History Surgical History History of appendectomy History of bilateral tubal ligation History of cataract surgery R/L History of colonoscopy History of dilatation and curettage x2 History of foot surgery Right hammertoe repairs History of spinal surgery L1-L2 lumbar decompression (11/10/18): Grade 2 view, MAC#3, ETT 7.0 at [facility] History of tooth extraction WTE Ovarian cyst Removal Past Anesthesia History No Hx of Anesthesia Complications (except PONV) and No Family Hx of Anesthesia Complications (except sister with PONV) History of PONV No Hx of Motion Sickness and History of PONV Social History Smoking Status: Never smoker Do You Dip or Chew Tobacco: No Hx Alcohol Use: Yes Alcohol type: beer and wine alcohol intake frequency: a few times a month Hx Substance Use: No substance use type: does not use Review of Systems Infrequent, intermittent chronic cough, unchanged. Patient denies chest pain, shortness of breath, fever, chills, wheezing, palpitations. Physical Exam Vital Signs VITALS BP 117/78 P 82 TEMP 97.9 SP02 98%RA RESP 16 PHYSICAL Full cervical extension range of motion. Full TMJ range of motion. TMD 3 finger breaths Mallampati Score 3 Dentition: intact Lungs: clear throughout to auscultation Cardiac: regular rate and rhythm, no murmurs noted Spine: normal Carotid arteries: negative bruit Extremities: no edema Lab Results Anesthesia Preop Results Results Anesthesia Widget: WBC 4.58 K/uL (4.8-10.8) L 06/19/21 Hgb 10.1 g/dL (12.0-16.0) L 06/19/21 Hct 31.0 % (37-47) L 06/19/21 Plt 281 K/uL (130-400) 06/19/21 Na 134 mmol/L (136-145) L 06/19/21 K 4.4 mmol/L (3.5-5.1) 06/19/21 Cl 107 mmol/L (98-107) 06/19/21 CO2 26 mmol/L (21-32) 06/19/21 BUN 20 mg/dl (7-18) H 06/19/21 Creat 0.86 mg/dl (0.6-1.2) 06/19/21 Glucose Level 92 mg/dl (70-99) 06/19/21 PT 10.1 Seconds (9.0-12.0) 06/19/21 PTT 24.6 Seconds (21.0-31.0) 06/19/21 INR 1.0 (0.9-1.1) 06/19/21 Urine Color Yellow 06/19/21 Urine Appearance Clear (Clear) 06/19/21 Urine pH 6.5 (4.5-7.5) 06/19/21 Urine Specific [place] 1.019 (1.000-1.030) 06/19/21 Urine Protein Negative (Negative) 06/19/21 Urine Glucose (UA) Negative (Negative) 06/19/21 Urine Ketones Negative (Negative) 06/19/21 Urine Blood Negative (Negative) 06/19/21 Urine Nitrite Negative (Negative) 06/19/21 Urine Bilirubin Negative (Negative) 06/19/21 Urine Urobilinogen Negative (Negative) 06/19/21 Urine Leukocyte Esterase 2+ (Negative) H 06/19/21 Urine WBC (Auto) 10-30 /hpf (0-5) H 06/19/21 Urine RBC (Auto) 0-4 /hpf (0-4) 06/19/21 Urine Hyaline Casts (Auto) 0 /lpf (0-5) 06/19/21 Urine Epithelial Cells (Auto) >30 /lpf (0-5) H 06/19/21 Urine Bacteria (Auto) Negative (Negative) 06/19/21 Blood Type O Positive 06/19/21 Antibody Screen NEGATIVE 06/19/21 Testing Electrocardiogram Date: 06/19/21 NSR at 73bpm. LAD. unconfirmed report. Chest X-Ray Date: 06/19/21 FINDINGS: Cardiomediastinal and hilar silhouettes are within normal limits. No pneumothorax, pleural effusion, airspace consolidation or overt pulmonary edema. Minimal linear subsegmental atelectasis/scarring of the inferior segment lingula. Degenerative changes of the shoulders and spine. Posterior interbody sophie and screw fusion at L1-L2. IMPRESSION: No acute process. Echocardiogram Date: 01/08/18 EF: 55% LV Function: normal Normal LV size and systolic function. Thickened aortic valve leaflets with no significant stenosis or regurgitation. Normal RV size and function. Stress Test Date: 12/22/17 Type: exercise Findings: + WNL Resting EF: 55-60% Resting LV Function: normal Resting RWMA: + none Valvular Disease: no significant valvular disease The patient exercised on the Claude protocol for 4 minutes and 15 seconds, achiev ing 7 METs. Achieved 98% MPHR. No significant ST segment deviations or arrhythmias. Did have left sided chest discomfort at rest, which did not change during exercise. She had increasing shortness of breath and fatigue during exercise which caused her to stop exercise. Has a reduced exercise tolerance. No ECG evidence of ischemia. No echocardiographic evidence of prior infarction or ischemia. Cervical Spine Date: 11/03/18 No evidence of dynamic subluxation on flexion or extension positioning. No abnormal widening of the predental interval. Mild degenerative changes at C5-6.
--- NOTE | 2021-07-02 11:24 | History & Physical Report ---
Date of Service July 02, 2021 Assessment & Plan (1) Neurogenic claudication due to lumbar spinal stenosis: Plan: Assessment lumbar spinal stenosis. Plan at this time patient presents with severe lumbar spinal stenosis and progressive neurologic decline in overall function. Neurosurgical prevent permanent neurologic deficit I am recommending lumbar decompression and fusion L2-S1 with hardware removal L1-L2. Risk benefits pros cons alternatives were outlined in detail. History of Present Illness Chief Complaint: Back and left leg pain with weakness Primary Care Provider: Goldy Tineo DO This is a 76-year-old female presents with progressive lumbosacral back pain with radiation down the left lower extremity. It markedly limits her ability to stand and ambulate. She is attempted epidural injections without any improvement. Allergies Allergy/AdvReac Type Severity Reaction Status Date / Time No Known Allergies Allergy Verified 06/12/21 10:38 Home Medications Medication Instructions Recorded Confirmed Type adalimumab 40 mg/0.8 mL 1 dose SUBCUT UD 10/30/18 06/12/21 History subcutaneous syringe kit (Humira) alendronate 70 mg tablet 70 mg PO WK 10/30/18 06/12/21 History aspirin 81 mg tablet,delayed 81 mg PO HS 10/30/18 06/12/21 History release (Aspir-) atorvastatin 20 mg tablet 20 mg PO HS 10/30/18 06/12/21 History calcium carbonate-vitamin D3 600 2 tab PO HS 10/30/18 06/12/21 History mg calcium-200 unit capsule (Calcium 600 + D(3)) cholecalciferol (vitamin D3) 50 4,000 unit PO HS 10/30/18 06/12/21 History mcg (2,000 unit) capsule (Vitamin D3) clomipramine 75 mg capsule 75 mg PO HS 10/30/18 06/12/21 History docusate sodium 100 mg capsule 100 mg PO QAM 10/30/18 06/12/21 History (Stool Softener) leflunomide 20 mg tablet 20 mg PO QAM 10/30/18 06/12/21 History levothyroxine 25 mcg tablet 25 mcg PO QAM 10/30/18 06/12/21 History multivitamin 1 tab PO HS 10/30/18 06/12/21 History turmeric 400 mg capsule 500 mg PO HS 10/30/18 06/12/21 History acetaminophen 500 mg tablet 500 mg BID PRN 06/21/21 06/21/21 History Past Med/Surg History Medical History Anemia chronic, hgb baseline 10's per chart review Back pain with radiation to LLE/foot Depression Hyperlipidemia Hypothyroidism OCD (obsessive compulsive disorder) Rheumatoid arthritis Primarily affecting hands Surgical History History of appendectomy History of bilateral tubal ligation History of cataract surgery R/L History of colonoscopy History of dilatation and curettage x2 History of foot surgery Right hammertoe repairs History of spinal surgery L1-L2 lumbar decompression (11/10/18): Grade 2 view, MAC#3, ETT 7.0 at [facility] History of tooth extraction WTE Ovarian cyst Removal Family History Grandmother (Paternal) Family history of diabetes mellitus Father Family history of diabetes mellitus Social History Smoking Status: Never smoker Second Hand Exposure: No; Hx Alcohol Use: Yes Alcohol type: beer and wine Hx Substance Use: No Preferred Language: Maldivian Communication Ability: Effective Box Finisher Required: No Beliefs That Will Affect Care: None marital status: Current Living Situation: Spouse Feels Safe at Home: Yes Assistive Devices: None Physical Exam Physical Exam: Patient is alert and oriented Heart regular in rhythm Lungs clear to auscultation Motor exam does reveal evidence of a 4-/5 bilateral extensor hallucis longus and dorsiflexion. Plantarflexion is a 5/5 bilaterally. Quadriceps are 4+/5 bilaterally. Deep tendon reflexes are absent. Sensory is intact.
[~2021-07-03 07:54] MED LIST changes: -CEFAZOLIN 1000MG 1,000 MG/7.5 ML SYR IV SCH; +GABAPENTIN 300 MG CAP PO SCH; -GABAPENTIN 300 MG PO SCH; +ceFAZolin 1000MG 1,000 MG/7.5 ML SYR IV SCH
[2021-07-03] MEDS ORDERED: ePHEDrine sulfate 50 MG/ML AMP IV PRN (09:21)
[2021-07-03] MEDS ORDERED: fentaNYL citrate 100 MCG/2 ML VIAL IV PRN (09:21)
[2021-07-03] MEDS ORDERED: ONDANSETRON INJ 2 MG/ML 2 ML VIAL IV PRN ×2 (09:21→15:16)
[2021-07-03] MEDS ORDERED: ATROPINE SULFATE 0.1 MG/ML 10ML SYR IV PRN (09:21)
[2021-07-03] MEDS ORDERED: HYDROmorphone INJ 0.5 MG/0.5 ML SYR IV PRN ×2 (09:21→15:16)
[2021-07-03] MEDS ORDERED: GLYCOPYRROLATE 0.2 MG/ML VIAL ONE (10:09)
[2021-07-03] MEDS ORDERED: HYDROmorphone INJ 2 MG/ML SYR/VIAL ONE (10:09)
[2021-07-03] MEDS ORDERED: MIDAZOLAM HCL 1 MG/ML 2ML VIAL ONE (10:09)
[2021-07-03] MEDS ORDERED: DEXAMETHASONE SOD INJ 4 MG/ML VIAL ONE (10:09)
[2021-07-03] MEDS ORDERED: ONDANSETRON INJ 2 MG/ML 2 ML VIAL ONE (10:09)
[2021-07-03] MEDS ORDERED: LIDOCAINE 2% 2 ML VIAL/AMP(20MG/ML) INFIL ONE (10:09)
[2021-07-03] MEDS ORDERED: fentaNYL citrate 100 MCG/2 ML VIAL ONE (10:09)
[2021-07-03] MEDS ORDERED: PROPOFOL IV EMULSION 10 MG/ML 20 ML VIAL IV ONE (10:09)
[2021-07-03] MEDS ORDERED: ROCURONIUM BROMIDE 10 MG/ML 5 ML VIAL IV ONE (10:09)
[2021-07-03] MEDS ORDERED: NEOSTIGMINE METHYLSULFATE 1 MG/ML 10ML VIAL ONE (10:09)
--- NOTE | 2021-07-03 10:16 | History & Physical Bridge Note ---
Date of Service July 03, 2021 History & Physical Bridge Note I have examined the patient, reviewed the History & Physical and in the interval since the performance of the History & Physical I have noted the following changes of clinical significance: no changes noted
[2021-07-03] MEDS ORDERED: BUPIVACAINE 0.5 % 5 MG/1 ML MPF 30ML VIAL ONE (10:37)
[2021-07-03] MEDS ORDERED: EPINEPHrine INJ 1 MG/ML AMP ONE (10:37)
[2021-07-03] MEDS ORDERED: PHENYLEPHRINE 100MCG/ML 5ML SYR ONE (12:00)
[2021-07-03] MEDS ORDERED: FLOSEAL HEMOSTATIC MATRIX 10ML TOP ONE (12:30)
--- NOTE | 2021-07-03 13:32 | Operative Report ---
Post Operative Report Pre & Post Diagnosis Operation Date: 07/03/21 10:05 Pre-Op Diagnosis: Neurogenic claudication due to lumbar spinal stenosis. Post-Op Diagnosis: Neurogenic claudication due to lumbar spinal stenosis. I identified the patient and participated in the time-out.: Yes Procedure Operation Date: 07/03/21 10:05 Actual Procedures #1 Level of posterior instrumentation L1-L2. #2 exploration of fusion L1-L2. #3 decompression with bilateral medial facetectomies and foraminotomies L2-3, L3-4, L4-5 and L5-S1. #4 posterior spinal fusion L2-S1. #5 placed posterior segmental instrumentation L1-S1. #6 interbody fusion L4-5 and L5-S1. #7 placement of peek cage 5 x 14 mm at L4-L5 and 7 x 22 mm at L5-S1. #8 placement locally harvested morselized autograft in the posterior gutters. #9 placement infuse collagen sponge, and master graft in the posterior gutters and I factor in the interbody space. Surgeon Steve Chavarria, Senior Interior Designer Marnie Crow Estimated Blood Loss 100 Findings Consistent with Post-Op Diagnosis Specimens None Indications This is a 76-year-old female presents with above-mentioned diagnosis after failing course of nonoperative care is here for the above-mentioned procedure. Description of Procedure Patient met with identified informed consent obtained. Patient was then taken to the suite underwent an patient placed in a prone position the [facility] top Jhon frame. All bony prominences well-padded eyes inspected to ensure no external pressure placed upon the. This point the thoracolumbar spine was prepped and draped in a sterile fashion. Sharp dissection with the assistance of Bovie cautery performed down to and exposing the instrumentation at L1-L2 and the lamina and transverse processes of L3-L4-L5 and the sacral ala bilaterally. And then proceeded to move the hardware at L1-L2 bilaterally explore the fusion mass noting it to be mature and intact. I then performed a complete laminectomy of L5 L4 L3 and partial laminectomy L2 including medial facetectomies and foraminotomies addressing severe spinal stenosis as well as a far lateral disc condition at L4-5 on the left. After complete decompression pedicle screws were placed in a 1 L3-L4 L5-S1 bilaterally with assistance of fluoroscopy. By way of a transforaminal portion left complete discectomy of L5-S1 was performed endplates curetted to subcortically bone and a 7 x 22 mm peek cage filled I factor tapped in position. Then proceeded L4-L5 and again complete discectomy was performed by way of a transforaminal portion left endplates curetted to subcortical bleeding bone and a 5 mm peek cage filled with I factor tapped in position. Proper sized rods were then contoured and locked in final position bilaterally. The transverse processes of L 2 L3-L4-L5 and the sacral ala burred to subcortical being bone. Infuse collagen sponge master graft and local autograft was placed in the posterior gutters. 15 round REMI drain inserted. The incision was then closed with 1 Vicryl fascia 2-0 Vicryl subcutaneously and 4 Monocryl for final skin closure. Steri-Strip sterile dressing placed. Patient will continue PACU stable condition. Please note patient will continue PACU stable condition. Spinal cord monitoring was utilized at the procedure no changes noted lastly Marnie Crow was present at the entire procedure and all the patient positioning complex portions of the surgery and final skin closure. I attest to the content of the Intraoperative Record and any orders documented therein. Any exceptions are noted below.
--- NOTE | 2021-07-03 14:20 | Fluoroscopy Report ---
FL lumbar spine 2-3V CLINICAL HISTORY: L1-2 REMOVE HRDWR/L2-S1 D/F/I COMPARISON STUDY: November 10, 2018 FLUOROSCOPY TIME: 37. NUMBER OF FLUOROSCOPIC IMAGES: 2 FINDINGS: Intraoperative fluoroscopic images are presented for review and shows transpedicular screws and fixat ing plates within L3-S1 level. Previous exam shows orthopedic hardware within L3-L4 level. Extensive degenerative changes of the spine are again seen. Please see surgical report for further details. IMPRESSION: As above. ACT 112: Negative or not required by law. The above report was generated using voice recognition software. It may contain grammatical, syntax o r spelling errors. Electronically signed by: Jada Colon DO 07/03/2021 2:18 PM
--- NOTE | 2021-07-03 14:27 | Anesthesiology Progress Note ---
Date of Service July 03, 2021 Anesthesia Post Procedure Vital Signs Vital Signs: Temp Pulse Pulse Resp BP Pulse Ox 07/03/21 14:20 97.5 F L 77 13 138/76 97 07/03/21 14:10 78 15 140/78 99 07/03/21 14:00 79 15 140/74 99 07/03/21 13:49 96.8 F L 88 16 156/90 H 99 07/03/21 08:30 97.9 F 80 18 165/98 H 99 Pain Intensity Left Knee: Pain Intensity: 0 Transfer of Care Handoff Completed per policy Notes Mental Status: alert / awake / arousable and participated in evaluation Patient Amnestic to Procedure: Yes Nausea / Vomiting: adequately controlled Pain: adequately controlled Airway Patency, RR, SpO2: stable & adequate BP & HR: stable & adequate Hydration State: stable & adequate Anesthetic Complications: no major complications apparent and Pt Satisfied with anesthetic care
[2021-07-03] MEDS ORDERED: traMADol HCL 50 MG TABLET PO PRN (15:16)
[2021-07-03] MEDS ORDERED: METOCLOPRAMIDE HCL INJ 5 MG/ML 2 ML VIAL IV PRN (15:16)
[2021-07-03] MEDS ORDERED: SOD PHOSPHATE/SOD BIPHOSPHATE ENEMA 132 ML BTL PR PRN (15:16)
[2021-07-03] MEDS ORDERED: diphenhydrAMINE Capsule 25 MG CAP PO PRN (15:16)
[2021-07-03] MEDS ORDERED: MAGNESIUM HYDROXIDE SUSP 30 ML UDC PO PRN (15:16)
[2021-07-03] MEDS ORDERED: DO NOT ADMINISTER FLU VACCINE PRN (15:16)
[2021-07-03] MEDS ORDERED: ALUMINUM/MAGNESIUM SUSP 30 ML UDC PO PRN (15:16)
[2021-07-03] MEDS ORDERED: NALOXONE HCL 0.4 MG/1 ML VIAL/CARP IV PRN (15:16)
[2021-07-03] MEDS ORDERED: bisacodyL 10 MG SUPP PR PRN (15:16)
[2021-07-03] MEDS ORDERED: ACETAMINOPHEN 500 MG TAB PO PRN (15:16)
[2021-07-03] MEDS ORDERED: LORazepam 0.5 MG/1 ML VIAL IV PRN (15:16)
[2021-07-03] MEDS ORDERED: PROMETHAZINE HCL 12.5 MG in SODIUM CHLORIDE 0.9% 50 ML IV PRN (15:16)
[2021-07-03] MEDS ORDERED: HYDROmorphone INJ 1 MG/ML SYRINGE IV PRN (15:16)
[2021-07-03] MEDS ORDERED: LORazepam 0.5 MG TAB PO PRN (15:16)
[2021-07-03] MEDS ORDERED: PHARMACY GLYCEMIC MGMT CONSULT PRN (15:16)
[2021-07-03] MEDS ORDERED: FAMOTIDINE 20 MG TAB PO PRN (15:16)
[2021-07-03] MEDS ORDERED: DO NOT ADMINISTER PNEUMOCOCCAL VACCINE PRN (15:16)
[2021-07-03] MEDS ORDERED: ACETAMINOPHEN 1,000 MG/100 ML VIAL IV PRN (15:16)
[2021-07-03] MEDS ORDERED: oxyCODONE HCL IR 5 MG TAB (IMMEDIATE RELEASE) PO PRN (15:16)
[2021-07-03] MEDS ORDERED: ONDANSETRON 4 MG OD TAB PO PRN (15:16)
[2021-07-03] MEDS ORDERED: hydrOXYzine HCl 25 MG TAB PO PRN (15:16)
--- NOTE | 2021-07-03 15:39 | Hospitalist Consultation ---
Date of Consultation July 03, 2021 Assessment & Plan (1) Neurogenic claudication due to lumbar spinal stenosis: (2) Lumbar disc herniation with radiculopathy: - Pain management, bowel regimen and DVT ppx per the primary team - PT/OT consults - Follow am CBC to monitor for acute blood loss, noted to have chronic history of anemia with hemoglobin around 10 (3) Hyperlipidemia: -Continue atorvastatin 20 mg at bedtime (4) Hypothyroidism: -Continue levothyroxine 25 mcg daily (5) Rheumatoid arthritis: -Continue Humira, leflunomide 20 mg daily -Mainly affects pt hands (6) Osteoporosis: - Continue vit d, calcium and mvi upon discharge (7) Anemia: -Hemoglobin baseline is around 10, follow with a.m. labs DVT ppx: teds, asa 81 mg daily CODE: FULL Dispo: From home Thank you for involving us in the care of Mrs. Vega. Please do not hesitate to call with questions or concerns. At this time medicine service will follow along. Supervising Physician Co-Signing Physician Notes Patient seen and examined by me, care coordinated with Felicia Ray PA-C, please refer to her note above for further .detail Pt is a 76 yo F w/HLD, hypothyroidism, anemia, back pain, OCD, RA who underwent lumbar decompression fusion of L1-S1 by Dr. Chavarria on 07/03/2021. Postoperatively she is doing well, feels tired, but denies any significant pain. Denies any chest pain, shortness of breath, abdominal pain, nausea or vomiting. Currently she is sitting up in bed, in no acute distress, she is awake alert oriented answering questions appropriately. Heart sounds regular, lung sounds clear to auscultation bilaterally without any wheezing rhonchi or crackles. Abdomen is soft nontender, and nondistended. She is moving extremities. Lower extremities without any notable sensory loss. Osei catheter is in place. Monitor closely hemodynamic status, and H&H. Rebeca Corbett MD History of Present Illness Reason for Consultation: Medical management Requesting Physician: Dr. Chavarria Attending Physician: Steve Chavarria DO History of Present Illness This is a 76 yo F with PMhx of HLD, hypothyroidism, anemia, back pain, OCD, rheumatoid arthritis who underwent an elective lumbar decompression fusion of L1-S1 by Dr. Chavarria on 07/03/2021. She is doing well overall. Pt feels tired, but denies pain, numbness or tingling down into her legs. She has not yet eaten since coming up from having surgery. Denies any throat discomfort from intubation. She reports that rheumatoid arthritis primarily affects her hands and feet, and that she takes Humira once a month and will be due for it within the next week. She lives at home with her who will be able to help assist her once discharged. Her last bowel movement was this morning prior to surgery. Osei catheter is in place. Allergies Allergy/AdvReac Type Severity Reaction Status Date / Time No Known Allergies Allergy Verified 07/03/21 08:37 Home Medications Medication Instructions Recorded Confirmed Type adalimumab 40 mg/0.8 mL 1 dose SUBCUT UD 10/30/18 07/03/21 History subcutaneous syringe kit (Humira) alendronate 70 mg tablet 70 mg PO WK 10/30/18 07/03/21 History aspirin 81 mg tablet,delayed 81 mg PO HS 10/30/18 07/03/21 History release (Aspir-) atorvastatin 20 mg tablet 20 mg PO HS 10/30/18 07/03/21 History calcium carbonate-vitamin D3 600 2 tab PO HS 10/30/18 07/03/21 History mg calcium-200 unit capsule (Calcium 600 + D(3)) cholecalciferol (vitamin D3) 50 4,000 unit PO HS 10/30/18 07/03/21 History mcg (2,000 unit) capsule (Vitamin D3) clomipramine 75 mg capsule 75 mg PO HS 10/30/18 07/03/21 History docusate sodium 100 mg capsule 100 mg PO QAM 10/30/18 07/03/21 History (Stool Softener) leflunomide 20 mg tablet 20 mg PO QAM 10/30/18 07/03/21 History levothyroxine 25 mcg tablet 25 mcg PO QPM 10/30/18 07/03/21 History multivitamin 1 tab PO HS 10/30/18 07/03/21 History turmeric 400 mg capsule 500 mg PO HS 10/30/18 07/03/21 History acetaminophen 500 mg tablet 500 mg BID PRN 06/21/21 07/03/21 History Cbd Oil 6 drp SUBLINGUAL BID 07/03/21 07/03/21 History Patient History Medical History (Updated 07/03/21 @ 15:58 by Clementina Avery PA-C) Anemia chronic, hgb baseline 10's per chart review Back pain with radiation to LLE/foot Depression Hyperlipidemia Hypothyroidism OCD (obsessive compulsive disorder) Rheumatoid arthritis Primarily affecting hands Surgical History History of appendectomy History of bilateral tubal ligation History of cataract surgery R/L History of colonoscopy History of dilatation and curettage x2 History of foot surgery Right hammertoe repairs History of spinal surgery L1-L2 lumbar decompression (11/10/18): Grade 2 view, MAC#3, ETT 7.0 at [facility] History of tooth extraction WTE Ovarian cyst Removal Family History Grandmother (Paternal) Family history of diabetes mellitus Father Family history of diabetes mellitus Social History Smoking Status: Never smoker Second Hand Exposure: No; Do You Dip or Chew Tobacco: No; Tobacco Cessation Education Requested by Patient: No Hx Alcohol Use: Yes Alcohol type: beer and wine Hx Substance Use: No Preferred Language: Albanian Communication Ability: Effective Chrome Polisher Required: No Beliefs That Will Affect Care: None marital status: Current Living Situation: Spouse Other Information That Helps Us Care for You: No Feels Safe at Home: Yes Safety Concerns: Feels Safe At This Time Assistive Devices: None Review of Systems Review of Systems: Constitutional: No fever, sweats or chills Eyes: No diplopia, no worsening or blurred vision ENT: normal hearing, no trouble swallowing Respiratory: No cough, sputum, dyspnea at rest or on exertion Cardiovascular: No chest pain, tightness or palpitations Abdomen: No pain, nausea, vomiting, diarrhea or constipation Musculoskeletal: No joint pain, calf pain, swelling Neurologic: No weakness, numbness/tingling, or balance problems Psychiatric: No anxiety or depression Skin: No rash or itch Physical Exam Physical Exam: General: awake, alert, no apparent distress Head: Normocephalic, atraumatic ENT: PERRL, EOMI, no pharyngeal exudate, mucous membranes moist Chest: Clear to auscultation, on room air, no adventitious breath sounds Cardiac: Regular rate and rhythm, no murmur, no JVD, normal peripheral pulses, good capillary refill Abdominal: NABS x 4 quadrants, soft, nondistended, nontender to palpation, no rebound or guarding : osei catheter in place, draining clear yellow urine Back: REMI drain in place draining bloody outs, dressing c/d/i. Extremities: Normal inspection, no peripheral edema or erythema, calfs nontender to palpation Psych: Normal mood and affect Neuro: AAO x 3, strength intact bilaterally and rated 5/5, no motor deficits, speech is clear, no peripheral sensory deficits Results & Data Results & Data ([facility]) Vital Signs (Past 12 Hours) Vital Signs Temp Pulse Pulse Resp BP Pulse Ox 07/03/21 14:50 36.4 C L 77 12 124/73 92 07/03/21 14:40 36.4 C L 76 13 126/74 92 07/03/21 14:30 36.4 C L 77 13 126/75 92 07/03/21 14:20 36.4 C L 77 13 138/76 97 07/03/21 14:10 78 15 140/78 99 07/03/21 14:00 79 15 140/74 99 07/03/21 13:49 36.0 C L 88 16 156/90 H 99 07/03/21 08:30 36.6 C 80 18 165/98 H 99 07/03/21 05:00 36.5 C 65 16 130/72 92
[2021-07-03] MEDS ORDERED: DEXTROSE 50% 50 ML SYRINGE IV PRN (16:30)
[2021-07-03] MEDS ORDERED: GLUCAGON FOR INJ 1 MG VIAL IM PRN (16:30)
[2021-07-03] MEDS ORDERED: CARBOHYDRATES FOR HYPOGLYCEMIA PO PRN (16:30)
[2021-07-03] MEDS ORDERED: GLUCOSE 10 TABS/TUBE PO PRN (16:30)
[2021-07-03] MEDS ORDERED: GLUCOSE 40% GEL 15 GM TUBE PO PRN (16:30)
[2021-07-03] MEDS: INSULIN ASPART 100 UNITS/ML 3 ML PEN SC SCH ×2 (17:29→21:38)
[2021-07-03] MEDS: ceFAZolin 1000MG 1,000 MG/7.5 ML SYR IV SCH (18:20)
[2021-07-03] MEDS: SODIUM CHLORIDE 0.9% 1000ML 1,000 ML IV SCH (18:20)
[2021-07-03] MEDS: ASPIRIN 81 MG ECTAB PO SCH (20:08)
[2021-07-03] MEDS: CALCIUM 600MG + VIT D 400 IU TAB PO SCH (20:09)
[2021-07-03] MEDS: ATORVASTATIN 20 MG TAB PO SCH (20:09)
[2021-07-03] MEDS: CHOLECALCIFEROL 1,000 UNITS 25 MCG TAB PO SCH (20:09)
[2021-07-03] MEDS: MULTIVITAMIN TAB PO SCH (20:10)
[2021-07-03] MEDS: DOCUSATE SODIUM/SENNA 50/8.6MG TAB PO SCH (20:10)
[2021-07-03] MEDS: [UNRECOGNIZED DRUG - REMARK] PO SCH (20:12)
[2021-07-03] MEDS ORDERED: LEVOTHYROXINE SODIUM 25 MCG TABLET PO SCH (21:00)
[2021-07-03] MEDS ORDERED: COUGH DROP (SUGAR FREE) LOZ 24 LOZ/1 BOX BUCCAL PRN (23:00)
[2021-07-04] MEDS: ceFAZolin 1000MG 1,000 MG/7.5 ML SYR IV SCH (04:00)
[2021-07-04] MEDS: SODIUM CHLORIDE 0.9% 1000ML 1,000 ML IV SCH (04:00)
[2021-07-04 06:03] LABS: Basophils # (auto) 0.01 K/uL (0-0.2); Basophils % (auto) 0.1 %; Hematocrit (blood only) 26.2 % (37-47); Hemoglobin 8.5 g/dL (12.0-16.0); Immature Granulocytes # (auto) 0.01 K/uL (0.00-0.02); Immature Granulocytes % (auto) 0.1 %; Lymphocytes # (auto) 0.72 K/uL (1.2-3.4); Lymphocytes % (auto) 8.9 %; Mean Corpuscular Hgb Conc 32.4 g/dL (32-36); Mean Corpuscular Volume 107.8 fL (80-100); Mean Platelet Volume 8.9 fL (7.4-10.4); Monocytes # (auto) 0.92 K/uL (0.11-0.59); Monocytes % (auto) 11.3 %; Neutrophils # (auto) 6.47 K/uL (1.4-6.5); Neutrophils % (auto) 79.6 %; Platelet Count 248 K/uL (130-400); RDW Coefficient of Variation 13.9 % (11.5-14.5); RDW Standard Deviation 54.9 fL (36.4-46.3); Red Blood Count 2.43 M/uL (4.2-5.4); White Blood Count 8.13 K/uL (4.8-10.8)
[2021-07-04] MEDS: POLYETHYLENE (MIRALAX) 17 GM PACK PO SCH ×3 (06:03→17:35)
[2021-07-04] MEDS: LEVOTHYROXINE SODIUM 25 MCG TABLET PO SCH (06:04)
[2021-07-04 06:37] LABS: BUN Creatinine Ratio 16.1 (10-20); Calcium 8.6 mg/dl (8.5-10.1); Est GFR (African American) 86.2 ml/min; Est GFR (Non-African American) 74.4 ml/min; Potassium 4.3 mmol/L (3.5-5.1)
[2021-07-04 07:24] LABS: Estimated Average Glucose 111 mg/dl; Hemoglobin A1C 5.5 % (4.5-5.6)
[2021-07-04] MEDS: DOCUSATE SODIUM 100 MG CAP PO SCH (08:29)
[2021-07-04] MEDS: dexAMETHasone 6 MG in SYRINGE 0 ML IV SCH (08:29)
[2021-07-04] MEDS: INSULIN ASPART 100 UNITS/ML 3 ML PEN SC SCH ×4 (08:31→21:25)
--- NOTE | 2021-07-04 08:51 | Hospitalist Progress Note ---
Date of Service July 04, 2021 Assessment & Plan (1) Neurogenic claudication due to lumbar spinal stenosis: Plan: Status post L1-L2 hardware removal with L2-S1 lumbar decompression fusion, POD #[address] Chavarria EBL 100 mL; REMI drain 260ml Tolerated procedure well Pain/wound management per orthopedics Activity and therapy as directed by Ortho Encourage incentive spirometry Monitor hemoglobin (2) Anemia: Plan: Chronic anemia hemoglobin baseline is around 10 Hemoglobin and hematocrit 8.5 and 26.2 Likely dilutional and acute blood loss at this point Continue to monitor, transfuse if hemoglobin less than 7 or otherwise symptomatic (3) Hyperlipidemia: Plan: Continue atorvastatin 20 mg at bedtime (4) Hypothyroidism: Plan: Continue levothyroxine 25 mcg daily (5) Rheumatoid arthritis: Plan: Continue Humira, leflunomide 20 mg daily (6) Osteoporosis: Plan: Continue vit d, calcium and mvi upon discharge DVT ppx: teds, asa 81 mg daily CODE: FULL Dispo: Per primary PCP: Dr. Goldy Tineo Patient was seen and examined in collaboration with Dr. Reece, please see addendum Thank you for this consultation. We will follow the patient with you during their hospital stay. You can reach a member of the [facility] Hospitalist Team 05/05 via hospitalist role on tiger text. Please contact via [place] text with questions or concerns to Ro [place]). Admission and Anticipated Discharge Date Admission Date: July 03, 2021 Supervising Physician Co-Signing Physician Notes Patient is seen and examined at bedside. States having back pain at surgical site. Also reports right lower extremity numbness. Denies chest pain, dyspnea, dizziness, nausea, abdominal pain. On exam patient is thin, frail, no apparent distress, normocephalic atraumatic, EOMI, lungs are clear to auscultation, normal breath sounds, S1-S2, no murmur, no pedal edema, abdomen soft, nontender, normal bowel sounds, Back--physical site in dressing, alert, awake, oriented, grossly no focal deficits. Lumbar spinal stenosis with neurogenic claudication S/P decompression fusion surgery by Dr. Chavarria POD#1. Acute blood loss postoperative anemia. Monitor H&H. Currently no indication for transfusion. Continue bowel regimen to prevent constipation. Pain control, wound care as per orthopedics. I personally reviewed the record. Patient is interviewed and examined at bedside. Patient's care is coordinated with Ro Frazier PA-C. Please refer to the documentation above for details of patient's presentation and for discussion of other issues. Subjective Patient was seen and examined 306. Follow-up lumbar surgery POD #[address] Chavarria. She offers no acute complaints. She does have incisional back pain, 5 out of 10. She had Martinez catheter removed this morning. She denies fever, chills, sweats, lightheadedness, dizziness, chest pain, shortness breath, cough, nausea, vomiting, abdominal pain. She is tolerating diet. She has not yet urinated since catheter removed. Review of Systems Review of Systems: All systems reviewed & are unremarkable except as noted in HPI & below Physical Exam Physical Exam: Gen: WD/WN, female, sitting up in bedside chair, NAD, A&O x3 HEENT: Normocephalic, atraumatic, conjunctivae moist, sclerae anicteric, mucous membranes moist. Lung: Clear to Auscultation bilaterally, no wheezes/rales/rhonchi Heart: Regular rate, regular rhythm, no murmurs, rubs, or gallops Abdomen: Soft, NT, ND +BS x 4 Extremities: No edema, lumbar dressing CDI, REMI drain with serosanguineous drainage Skin: Warm, no rash, negative turgor. Results & Data Results & Data ([facility]) Vital Signs (Past 12 Hours) Vital Signs Temp Pulse Resp BP BP Pulse Ox 07/04/21 07:24 36.7 C 84 16 131/75 96 07/04/21 04:05 36.6 C 84 16 144/80 H 97 07/03/21 23:15 36.8 C 16 147/87 H 95 Laboratory Results Short CBC 07/04/21 Range/Units 05:21 WBC 8.13 (4.8-10.8) K/uL Hgb 8.5 L (12.0-16.0) g/dL Hct 26.2 L (37-47) % Plt Count 248 (130-400) K/uL BMP 07/04/21 05:21 Sodium 137 Potassium 4.3 Chloride 108 H Carbon Dioxide 25 BUN 13 Creatinine 0.78 Glucose 105 H Calcium 8.6 Diagnostic Findings Lumbar Spine X-Ray 07/03/21 10:05 FL lumbar spine 2-3V CLINICAL HISTORY: L1-2 REMOVE HRDWR/L2-S1 D/F/I COMPARISON STUDY: November 10, 2018 FLUOROSCOPY TIME: 37. NUMBER OF FLUOROSCOPIC IMAGES: 2 FINDINGS: Intraoperative fluoroscopic images are presented for review and shows transpedicular screws and fixating plates within L3-S1 level. Previous exam shows orthopedic hardware within L3-L4 level. Extensive degenerative changes of the spine are again seen. Please see surgical report for further details. IMPRESSION: As above. ACT 112: Negative or not required by law. The above report was generated using voice recognition software. It may contain grammatical, syntax or spelling errors. Electronically signed by: Jada Colon DO 07/03/2021 2:18 PM Medications Administered Current Inpatient Medications Acetaminophen (Acetaminophen 500 Mg Tab) 1,000 mg PO Q8H PRN PRN Reason: MILD Pain Scale 1,2,3 & Pre PT Stop: 08/02/21 15:15 Last Admin: 07/04/21 08:29 Dose: 1,000 mg Documented by: Al Hydrox/Mg Hydrox/Simethicone (Aluminum/Magnesium Susp 30 Ml Udc) 30 ml PO Q6H PRN PRN Reason: Dyspepsia Stop: 08/02/21 15:15 Aspirin (Aspirin 81 Mg Ectab) 81 mg PO HS ANANDA Stop: 08/02/21 20:59 Last Admin: 07/03/21 20:08 Dose: 81 mg Documented by: Atorvastatin Calcium (Atorvastatin 20 Mg Tab) 20 mg PO HS ANANDA Stop: 08/02/21 20:59 Last Admin: 07/03/21 20:09 Dose: 20 mg Documented by: Bisacodyl (Bisacodyl 10 Mg Supp) 10 mg IA DAILY PRN PRN Reason: Constipation Stop: 08/02/21 15:15 Dextrose (Dextrose 50% 50 Ml Syringe) 25 - 50 ml IV UD PRN; Protocol PRN Reason: Hypoglycemia Protocol Stop: 08/02/21 16:29 Diphenhydramine HCl (Diphenhydramine Capsule 25 Mg Cap) 25 mg PO Q6H PRN PRN Reason: Allergic Rhinitis/Insomnia Stop: 08/02/21 15:15 Docusate Sodium (Docusate Sodium 100 Mg Cap) 100 mg PO QAM ANANDA Stop: 08/03/21 08:59 Last Admin: 07/04/21 08:29 Dose: 100 mg Documented by: Famotidine (Famotidine 20 Mg Tab) 20 mg PO Q12H PRN PRN Reason: Dyspepsia Stop: 08/02/21 15:15 Glucagon (Glucagon For Inj 1 Mg Vial) 1 mg IM UD PRN; Protocol PRN Reason: Hypoglycemia Protocol Stop: 08/02/21 16:29 Glucose (Glucose 40% Gel 15 Gm Tube) 15 - 30 gm PO UD PRN; Protocol PRN Reason: Hypoglycemia Protocol Stop: 08/02/21 16:29 Glucose (Glucose 10 Tabs/Tube) 4 - 8 tabs PO UD PRN; Protocol PRN Reason: Hypoglycemia Protocol Stop: 08/02/21 16:29 Hydromorphone HCl (Hydromorphone Inj 0.5 Mg/0.5 Ml Syr) 0.5 mg IV Q3H PRN PRN Reason: MODERATE Pain (Scale 4,5,6) & Pre PT Stop: 07/17/21 15:15 Hydromorphone HCl (Hydromorphone Inj 1 Mg/Ml Syringe) 1 mg IV Q3H PRN PRN Reason: SEVERE Pain (Scale 7,8,9,10) Stop: 07/17/21 15:15 Hydroxyzine HCl (Hydroxyzine Hcl 25 Mg Tab) 25 mg PO Q8H PRN PRN Reason: Anxiety Stop: 08/02/21 15:15 Promethazine HCl 12.5 mg/ (Sodium Chloride) 50.5 mls @ 202 mls/hr IV Q6H PRN PRN Reason: Nausea &/or Vomiting Stop: 08/02/21 15:15 Acetaminophen (Ofirmev) 1,000 mg in 100 mls @ 400 mls/hr IV Q8H PRN PRN Reason: Pain Rating 1-3 & Pre PT Stop: 07/06/21 15:15 Lorazepam (Ativan) 0.5 mg in 1 mls @ 1 mls/min IV Q8H PRN PRN Reason: Sedation/Anxiety Stop: 08/02/21 15:15 Dexamethasone 6 mg/ Syringe 1.5 mls @ 1 mls/min IV DAILY ANANDA Stop: 07/06/21 09:02 Last Admin: 07/04/21 08:29 Dose: 1 mls/min Documented by: Influenza Virus Vaccine Quadrival (Do Not Administer Flu Vaccine) 1 ea N/A PRN PRN PRN Reason: Notification Stop: 08/02/21 15:15 Insulin Aspart (Insulin Aspart 100 Units/Ml 3 Ml Pen) 0 units SC ACHS [facility] Stop: 08/02/21 16:29 Last Admin: 07/04/21 08:31 Dose: Not Given Documented by: Levothyroxine Sodium (Levothyroxine Sodium 25 Mcg Tablet) 25 mcg PO DAILYBB [facility] Stop: 08/03/21 06:29 Last Admin: 07/04/21 06:04 Dose: 25 mcg Documented by: Lorazepam (Lorazepam 0.5 Mg Tab) 0.5 mg PO Q8H PRN PRN Reason: Sedation/Anxiety Stop: 08/02/21 15:15 Magnesium Hydroxide (Magnesium Hydroxide Susp 30 Ml Udc) 30 ml PO Q24H PRN PRN Reason: Constipation Stop: 08/02/21 15:15 Menthol (Cough Drop (Sugar Free) Dixon 24 Dixon/1 Box) 1 dixon BUCCAL PRN PRN PRN Reason: Sore Throat Stop: 08/02/21 22:59 Last Admin: 07/04/21 04:46 Dose: 1 dixon Documented by: Metoclopramide HCl (Metoclopramide Hcl Inj 5 Mg/Ml 2 Ml Vial) 10 mg IV Q6H PRN PRN Reason: Nausea &/or Vomiting Stop: 08/02/21 15:15 Miscellaneous (Order Awaiting Action [Leflunomide 20 Mg Tablet]) 1 ea N/A QS [facility] Stop: 08/02/21 15:59 Last Admin: 07/04/21 08:29 Dose: Not Given Documented by: Miscellaneous (Carbohydrates For Hypoglycemia ) 15 - 30 gm PO UD PRN PRN Reason: Hypoglycemia Treatment Stop: 08/02/21 16:29 Miscellaneous Information (Pharmacy Glycemic Mgmt Consult) 1 ea N/A UD PRN PRN Reason: Consult Stop: 08/02/21 15:15 Multivitamins (Multivitamin Tab) 1 tab PO HS [facility] Stop: 08/02/21 20:59 Last Admin: 07/03/21 20:10 Dose: 1 tab Documented by: Multivitamins/Minerals (Calcium 600mg + Vit D 400 Iu Tab) 2 tab PO HS ANANDA Stop: 08/02/21 20:59 Last Admin: 07/03/21 20:09 Dose: 2 tab Documented by: Naloxone HCl (Naloxone Hcl 0.4 Mg/1 Ml Vial/Carp) 0.1 mg IV Q5M PRN PRN Reason: Oversedation/Resp depression Stop: 08/02/21 15:15 Clomipramine*Non- Form Patient's Own Med [address] [facility] Stop: 08/02/21 20:59 Last Admin: 07/03/21 20:12 Dose: 1 ea Documented by: Ondansetron HCl (Ondansetron Inj 2 Mg/Ml 2 Ml Vial) 4 mg IV Q6H PRN PRN Reason: Nausea &/or Vomiting Stop: 08/02/21 15:15 Ondansetron HCl (Ondansetron 4 Mg Od Tab) 4 mg PO Q6H PRN PRN Reason: Nausea Stop: 08/02/21 15:15 Oxycodone HCl (Oxycodone Hcl Ir 5 Mg Tab (Immediate Release)) 5 - 10 mg PO Q4H PRN PRN Reason: Pain & Pre PT Stop: 07/17/21 15:15 Pneumococcal Polyvalent Vaccine (Do Not Administer Pneumococcal Vaccine) 1 ea N/A PRN PRN PRN Reason: Notification Stop: 08/02/21 15:15 Polyethylene Glycol (Polyethylene (Miralax) 17 Gm Pack) 17 gm PO Q6 ANANDA Stop: 08/03/21 05:59 Last Admin: 07/04/21 06:03 Dose: 17 gm Documented by: Senna/Docusate Sodium (Docusate Sodium/Senna 50/8.6mg Tab) [address] [facility] Stop: 08/02/21 20:59 Last Admin: 07/03/21 20:10 Dose: 2 tab Documented by: Sodium Biphosphate/Sodium Phosphate (Sod Phosphate/Sod Biphosphate Enema 132 Ml Btl) 132 ml IA ONE PRN PRN Reason: Constipation Stop: 08/02/21 15:15 Tramadol HCl (Tramadol Hcl 50 Mg Tablet) 50 - 100 mg PO Q4H PRN PRN Reason: Moderate-Severe pain & Pre PT Stop: 08/02/21 15:15 Vitamin D (Cholecalciferol 1,000 Units 25 Mcg Tab) 4,[address] [facility] Stop: 08/02/21 20:59 Last Admin: 07/03/21 20:09 Dose: 4,000 units Documented by:
--- NOTE | 2021-07-04 11:05 | Orthopedic Progress Note ---
Date of Service July 04, 2021 Assessment & Plan (1) Neurogenic claudication due to lumbar spinal stenosis: Plan: This time continue physical therapy monitor REMI output hopefully discharge home in the next few days. Admission and Anticipated Discharge Date Admission Date: July 03, 2021 Subjective Patient's back pain is controlled no leg pain Physical Exam Physical Exam: Patient is ambulating halls with a walker tolerating this well. Good strength testing. Results & Data ([facility]) Vital Signs (Past 12 Hours) Vital Signs Temp Pulse Resp BP BP Pulse Ox 07/04/21 07:24 36.7 C 84 16 131/75 96 07/04/21 04:05 36.6 C 84 16 144/80 H 97 07/03/21 23:15 36.8 C 16 147/87 H 95
--- NOTE | 2021-07-04 12:21 | Pharmacy Report ---
Pharmacy Glycemic Short Note 2 - Date of Service July 04, 2021 - Glycemic Short BSG Results (Last 24 hours): 07/03/21 07/03/21 07/03/21 16:07 17:17 20:24 Glucose POC Glucose 135 H 146 H 151 H 07/04/21 07/04/21 07/04/21 05:21 08:27 11:40 Glucose 105 H POC Glucose 110 H 186 H OUTPATIENT ANTIDIABETIC REGIMEN: * n/a * A1c 5.5% ASSESSMENT: * 76 year old female now POD 1 spinal surgery. BSGs postop in 140-150s * No hx of diabetes noted. Pharmacy consulted to follow blood sugars. * Fasting BSG 105 mg/dL this AM, within range. Patient received 8 mg iv dex yesterday. Patient refusing insulin administration yesterday * This AM, did remove CR and plan to utilize CF only for now. Patient continues to steroids today, will trend BSGs PLAN FOR INPATIENT GLYCEMIC CONTROL: * Hold outpatient oral diabetes medications * Basal insulin * hold * Bolus insulin * NovoLog per scale ACHS or Q6hrs while NPO * Goal Range: Low 120 mg/dL - High 150 mg/dL * Correction Factor: 35 mg/dL/unit * Nutritional / Prandial insulin per carb ratio of 1 unit per -- grams CHO consumed PLAN FOR DISCHARGE: * no changes on discharge - patient is not diabetic
[2021-07-04] MEDS: [UNRECOGNIZED DRUG - REMARK] PO SCH (21:22)
[2021-07-04] MEDS: ATORVASTATIN 20 MG TAB PO SCH (21:23)
[2021-07-04] MEDS: ASPIRIN 81 MG ECTAB PO SCH (21:23)
[2021-07-04] MEDS: CHOLECALCIFEROL 1,000 UNITS 25 MCG TAB PO SCH (21:24)
[2021-07-04] MEDS: MULTIVITAMIN TAB PO SCH (21:24)
[2021-07-04] MEDS: DOCUSATE SODIUM/SENNA 50/8.6MG TAB PO SCH (21:25)
[2021-07-04] MEDS: CALCIUM 600MG + VIT D 400 IU TAB PO SCH (22:17)
[2021-07-05] MEDS: LEVOTHYROXINE SODIUM 25 MCG TABLET PO SCH (06:11)
[2021-07-05 06:20] LABS: Hematocrit (blood only) 25.7 % (37-47); Hemoglobin 8.5 g/dL (12.0-16.0); Mean Corpuscular Hemoglobin 35.6 pg (25-34); Mean Corpuscular Hgb Conc 33.1 g/dL (32-36); Mean Corpuscular Volume 107.5 fL (80-100); Mean Platelet Volume 8.6 fL (7.4-10.4); Platelet Count 227 K/uL (130-400); RDW Coefficient of Variation 14.1 % (11.5-14.5); Red Blood Count 2.39 M/uL (4.2-5.4); White Blood Count 7.66 K/uL (4.8-10.8)
--- NOTE | 2021-07-05 07:24 | Hospitalist Progress Note ---
Date of Service July 05, 2021 Assessment & Plan (1) Neurogenic claudication due to lumbar spinal stenosis: Plan: Status post L1-L2 hardware removal with L2-S1 lumbar decompression fusion, POD #[address] Chavarria Pain/wound management per orthopedics Activity and therapy as directed by Ortho Hyperglycemic up to 180s 2/2 IV steroids. Not a diabetic. Patient refusing short term SQ insulin, but agreeable to low carb diet Scheduled Tylenol for left hip pain, discussed plan to continue at home as needed Continue incentive spirometry, PT/OT when appropriate (2) Anemia: Plan: Chronic anemia hemoglobin baseline is around 10 Hemoglobin stable post-operatively at 8.5 since yesterday Likely dilutional and acute blood loss at this point Continue to monitor, transfuse if hemoglobin less than 7 or otherwise symptomatic (3) Hyperlipidemia: Plan: Continue atorvastatin 20 mg at bedtime (4) Hypothyroidism: Plan: Continue levothyroxine 25 mcg daily (5) Rheumatoid arthritis: Plan: Continue Humira, leflunomide 20 mg daily (6) Osteoporosis: Plan: Continue vit d, calcium and mvi upon discharge DVT ppx: teds, asa 81 mg daily CODE: FULL Dispo: Per primary PCP: Dr. Goldy Tineo Patient was seen and examined in collaboration with Dr. Reece, please see addendum Thank you for this consultation. We will follow the patient with you during their hospital stay. You can reach a member of the [facility] Hospitalist Team 05/05 via hospitalist role on tiger text. Admission and Anticipated Discharge Date Admission Date: July 03, 2021 Supervising Physician Co-Signing Physician Notes Patient is seen and examined at bedside. States having back stiffness. Had bowel movement today. Nauseous earlier today but resolved. Denies chest pain, dyspnea, dizziness, abdominal pain. On exam patient is thin, frail, no apparent distress, normocephalic atraumatic, EOMI, lungs are clear to auscultation, normal breath sounds, S1-S2, no murmur, no pedal edema, abdomen soft, nontender, normal bowel sounds, Back--physical site in dressing, alert, awake, oriented, grossly no focal deficits. Lumbar spinal stenosis with neurogenic claudication S/P decompression fusion surgery by Dr. Chavarria POD#2. Acute blood loss postoperative anemia. Globin dropped partly dilutional. Hb 8.5 today Continue bowel regimen. PT/OT . Pain control, wound care as per orthopedics. Hyperglycemia secondary to steroids. Monitor. I personally reviewed the record. Patient is interviewed and examined at bedside. Patient's care is coordinated with Helen Thorpe PA-C. Please refer to the documentation above for details of patient's presentation and for discussion of other issues. Subjective Seen and examined in 306-1. Left hip pain with paresthesias, chronic. No surgical site pain. Intermittent nausea but no vomiting. No fever, chills, chest pain, SOB, dysuria. Passing flatus but no bowel movement yet. Review of Systems Review of Systems: At least ten systems reviewed and negative except as noted in the HPI. Physical Exam Physical Exam: General Appearance: WD/WN, vitals as above, NAD, sitting up in bed, pleasant, conversing easily Head: normocephalic, atraumatic Eyes: normal inspection, PERRL, conjunctivae normal, anicteric sclerae ENT: external ear and nose normal, oropharynx normal Neck: normal visual inspection, trachea midline, no thyromegaly Respiratory: normal respiratory effort, lungs clear to auscultation, no wheeze, rales, rhonchi. No accessory muscle use Cardiovascular: regular rate, rhythm, no murmur, normal peripheral pulses, no BLE edema. Vessels: no JVD Abdomen/GI: normal bowel sounds, soft, nontender, no hepatosplenomegaly Extremities/Musculoskeletal: +Spinal dressing c/d/i. REMI drain visualized. No cyanosis or clubbing, extremities motor strength 5/5 Neurologic: PERRL, CN's II-XI intact bilaterally and moves all extremities Psychiatric: A+Ox3, euthymic affect Skin: no rashes, normal color, warm/dry Results & Data Results & Data ([facility]) Vital Signs (Past 12 Hours) Vital Signs Temp Pulse Resp BP Pulse Ox 07/04/21 23:28 36.6 C 89 17 182/94 H 98 Laboratory Results Short CBC 07/05/21 Range/Units 06:04 WBC 7.66 (4.8-10.8) K/uL Hgb 8.5 L (12.0-16.0) g/dL Hct 25.7 L (37-47) % Plt Count 227 (130-400) K/uL Diagnostic Findings Lumbar Spine X-Ray 07/03/21 10:05 FL lumbar spine 2-3V CLINICAL HISTORY: L1-2 REMOVE HRDWR/L2-S1 D/F/I COMPARISON STUDY: November 10, 2018 FLUOROSCOPY TIME: 37. NUMBER OF FLUOROSCOPIC IMAGES: 2 FINDINGS: Intraoperative fluoroscopic images are presented for review and shows transpedicular screws and fixating plates within L3-S1 level. Previous exam shows orthopedic hardware within L3-L4 level. Extensive degenerative changes of the spine are again seen. Please see surgical report for further details. IMPRESSION: As above. ACT 112: Negative or not required by law. The above report was generated using voice recognition software. It may contain grammatical, syntax or spelling errors. Electronically signed by: Jada Colon DO 07/03/2021 2:18 PM
[2021-07-05] MEDS: LEFLUNOMIDE 10 MG TAB PO SCH (08:15)
[2021-07-05] MEDS: DOCUSATE SODIUM 100 MG CAP PO SCH (08:16)
[2021-07-05] MEDS: dexAMETHasone 6 MG in SYRINGE 0 ML IV SCH (08:17)
[2021-07-05] MEDS: INSULIN ASPART 100 UNITS/ML 3 ML PEN SC SCH ×4 (08:20→21:47)
--- NOTE | 2021-07-05 10:37 | Orthopedic Progress Note ---
Date of Service July 05, 2021 Assessment & Plan (1) Neurogenic claudication due to lumbar spinal stenosis: Plan: We will continue physical therapy monitor REMI output anticipate discharge home tomorrow. Admission and Anticipated Discharge Date Admission Date: July 03, 2021 Subjective Patient's back pain is controlled leg symptoms improved Physical Exam Physical Exam: Patient is in the chair at the bedside is good strength testing. Appears comfortable. Results & Data ([facility]) Vital Signs (Past 12 Hours) Vital Signs Temp Pulse Resp BP Pulse Ox 07/05/21 07:38 36.5 C 82 16 119/72 94 07/04/21 23:28 36.6 C 89 17 182/94 H 98
--- NOTE | 2021-07-05 11:19 | Pharmacy Report ---
Pharmacy Glycemic Sign Off Nt - Date of Service July 05, 2021 - Assessment & Plan ASSESSMENT: * Pharmacy was consulted by Dr Chavarria on 07/03/21 for glycemic control and to write orders per [facility] inpatient glycemic control protocol. * Novolog ACHS ordered based on wt and stress between 2 and 3 since patient is on IV Dexamethasone. * However, patient has been refusing all insulin. * BSGs ranging from 110 - 186 mg/dl yesterday. Expected BSG to be higher but it has been near control without any insulin. * No basal insulin needed. * Do not anticipate further changes in patient status that would quickly deteriorate glycemic control (i.e. patient to be NPO for upcoming procedure, steroids tapering, starting tube feedings, etc). PLAN FOR INPATIENT GLYCEMIC CONTROL: * Continue NovoLog per scale ACHS/Q6hrs while NPO if patient agrees to take insulin * Goal range = 120-150 mg/dl * CF = 35 mg/dl/unit * CR = none * Pharmacy is signing off of glycemic consult and will no longer be making adjustments to inpatient regimen. Please feel free to re-consult if needed. Thank you. DISCHARGE RECOMMENDATIONS: * A1c 5.5% on 07/04/21. Patient is not a diabetic and does not require any anti- diabetic meds on discharge.
[2021-07-05] MEDS: ACETAMINOPHEN 500 MG TAB PO SCH ×2 (14:37→21:18)
[2021-07-05 15:00] VITALS: O2SAT 96
[2021-07-05] MEDS: [UNRECOGNIZED DRUG - REMARK] PO SCH (21:16)
[2021-07-05] MEDS: MULTIVITAMIN TAB PO SCH (21:17)
[2021-07-05] MEDS: DOCUSATE SODIUM/SENNA 50/8.6MG TAB PO SCH (21:17)
[2021-07-05] MEDS: CHOLECALCIFEROL 1,000 UNITS 25 MCG TAB PO SCH (21:17)
[2021-07-05] MEDS: ATORVASTATIN 20 MG TAB PO SCH (21:17)
[2021-07-05] MEDS: ASPIRIN 81 MG ECTAB PO SCH (21:17)
[2021-07-05] MEDS: CALCIUM 600MG + VIT D 400 IU TAB PO SCH (21:19)
[2021-07-06] MEDS: LEVOTHYROXINE SODIUM 25 MCG TABLET PO SCH (06:08)
[2021-07-06] MEDS: ACETAMINOPHEN 500 MG TAB PO SCH (06:09)
[2021-07-06 06:35] LABS: Hematocrit (blood only) 25.3 % (37-47); Hemoglobin 8.4 g/dL (12.0-16.0); Mean Corpuscular Hemoglobin 35.1 pg (25-34); Mean Corpuscular Hgb Conc 33.2 g/dL (32-36); Mean Corpuscular Volume 105.9 fL (80-100); Mean Platelet Volume 8.9 fL (7.4-10.4); Platelet Count 248 K/uL (130-400); RDW Coefficient of Variation 14.4 % (11.5-14.5); RDW Standard Deviation 55.4 fL (36.4-46.3); Red Blood Count 2.39 M/uL (4.2-5.4)
[2021-07-06 07:07] LABS: BUN Creatinine Ratio 22.6 (10-20); Calcium 9.8 mg/dl (8.5-10.1); Creatinine Clr Calc Pharmacy 43.2 ml/min; Est GFR (African American) 77.7 ml/min; Potassium 4.1 mmol/L (3.5-5.1)
[2021-07-06 07:27] VITALS: PULSE 78; TEMP 97.3
--- NOTE | 2021-07-06 08:02 | Hospitalist Progress Note ---
Date of Service July 06, 2021 Assessment & Plan (1) Neurogenic claudication due to lumbar spinal stenosis: Plan: Status post L1-L2 hardware removal with L2-S1 lumbar decompression fusion, POD #[address] Chavarria Pain/wound management per orthopedics Activity and therapy as directed by Ortho Hyperglycemic up to 180s 2/2 IV steroids. Not a diabetic. Patient refusing short term SQ insulin, but agreeable to low carb diet Scheduled Tylenol for left hip pain, discussed plan to continue at home as needed Continue incentive spirometry, PT/OT when appropriate Endorsing lightheadedness with positional change. Hgb stable. Discussed importance of cautious ambulation, taking time with positional change (2) Anemia: Plan: Chronic anemia hemoglobin baseline is around 10 Hemoglobin stable post-operatively at 8.5 since yesterday Likely dilutional and acute blood loss at this point Continue to monitor, transfuse if hemoglobin less than 7 or otherwise symptomatic (3) Hyperlipidemia: Plan: Continue atorvastatin 20 mg at bedtime (4) Hypothyroidism: Plan: Continue levothyroxine 25 mcg daily (5) Rheumatoid arthritis: Plan: Continue Humira, leflunomide 20 mg daily (6) Osteoporosis: Plan: Continue vit d, calcium and mvi upon discharge DVT ppx: teds, asa 81 mg daily CODE: FULL Dispo: Per primary PCP: Dr. Goldy Tineo Patient was seen and examined in collaboration with Dr. Reece, please see addendum Thank you for this consultation. We will follow the patient with you during their hospital stay. You [facility] via hospitalist role on tiger text. Admission and Anticipated Discharge Date Admission Date: July 03, 2021 Supervising Physician Co-Signing Physician Notes Patient is seen and examined at bedside. States feeling well today. No significant back pain. Nausea resolved. Denies chest pain, dyspnea, dizziness, abdominal pain. On exam patient is thin, frail, no apparent distress, normo cephalic atraumatic, EOMI, lungs are clear to auscultation, normal breath sounds, S1-S2, no murmur, no pedal edema, abdomen soft, nontender, normal bowel sounds, Back--physical site in dressing, alert, awake, oriented, grossly no focal deficits. Lumbar spinal stenosis with neurogenic claudication S/P decompression fusion surgery by Dr. Aura POD#3. Acute blood loss postoperative anemia. Hb stable. Continue bowel regimen. PT/OT . Pain control, wound care as per orthopedics. Hyperglycemia secondary to steroids. HbA1C: 5.5. I personally reviewed the record. Patient is interviewed and examined at bedside. Patient's care is coordinated with Helen Thorpe PA-C. Please refer to the documentation above for details of patient's presentation and for discussion of other issues. Subjective Seen and examined in bedside chair in 306-1. Continues to experience left hip pain with paresthesias, chronic. Tylenol helping some. Ambulating with therapy without issue. Does become lightheaded with positional change. Nausea resolved. Had a bowel movement this morning. No fever, chills, chest pain, SOB, nausea, vomiting, abdominal pain, dysuria, diarrhea or constipation. Review of Systems Review of Systems: At least ten systems reviewed and negative except as noted in the HPI. Physical Exam Physical Exam: General Appearance: WD/WN, vitals as above, NAD, sitting up in bed, pleasant, conversing easily Head: normocephalic, atraumatic Eyes: normal inspection, PERRL, conjunctivae normal, anicteric sclerae ENT: external ear and nose normal, oropharynx normal Neck: normal visual inspection, trachea midline, no thyromegaly Respiratory: normal respiratory effort, lungs clear to auscultation, no wheeze, rales, rhonchi. No accessory muscle use Cardiovascular: regular rate, rhythm, no murmur, normal peripheral pulses, no BLE edema. Vessels: no JVD Abdomen/GI: normal bowel sounds, soft, nontender, no hepatosplenomegaly Extremities/Musculoskeletal: +Spinal dressing c/d/i. REMI drain visualized. No cyanosis or clubbing, extremities motor strength 5/5 Neurologic: PERRL, CN's II-XI intact bilaterally and moves all extremities Psychiatric: A+Ox3, euthymic affect Skin: no rashes, normal color, warm/dry Results & Data Results & Data ([facility]) Vital Signs (Past 12 Hours) Vital Signs Temp Pulse Resp BP Pulse Ox 07/06/21 07:26 36.3 C L 78 16 130/75 96 07/05/21 22:19 36.7 C 80 16 154/85 H 96 Laboratory Results Short CBC 07/06/21 Range/Units 05:32 WBC 8.80 (4.8-10.8) K/uL Hgb 8.4 L (12.0-16.0) g/dL Hct 25.3 L (37-47) % Plt Count 248 (130-400) K/uL BMP 07/06/21 05:32 Sodium 135 L Potassium 4.1 Chloride 102 Carbon Dioxide 27 BUN 19 H Creatinine 0.85 Glucose 97 Calcium 9.8 Diagnostic Findings Lumbar Spine X-Ray 07/03/21 10:05 FL lumbar spine 2-3V CLINICAL HISTORY: L1-2 REMOVE HRDWR/L2-S1 D/F/I COMPARISON STUDY: November 10, 2018 FLUOROSCOPY TIME: 37. NUMBER OF FLUOROSCOPIC IMAGES: 2 FINDINGS: Intraoperative fluoroscopic images are presented for review and shows transpedicular screws and fixating plates within L3-S1 level. Previous exam shows orthopedic hardware within L3-L4 level. Extensive degenerative changes of the spine are again seen. Please see surgical report for further details. IMPRESSION: As above. ACT 112: Negative or not required by law. The above report was generated using voice recognition software. It may contain grammatical, syntax or spelling errors. Electronically signed by: Jada Colon DO 07/03/2021 2:18 PM
[2021-07-06] MEDS: INSULIN ASPART 100 UNITS/ML 3 ML PEN SC SCH (08:43)
[2021-07-06] MEDS: LEFLUNOMIDE 10 MG TAB PO SCH (08:46)
[2021-07-06] MEDS: DOCUSATE SODIUM 100 MG CAP PO SCH (08:46)
[2021-07-06] MEDS: dexAMETHasone 6 MG in SYRINGE 0 ML IV SCH (08:46)
--- NOTE | 2021-07-06 10:21 | Discharge Summary ---
Date of Service July 06, 2021 Admission HPI Per Admitting Provider This is a 76-year-old female presents with progressive lumbosacral back pain with radiation down the left lower extremity. It markedly limits her ability to stand and ambulate. She is attempted epidural injections without any improvement. Principal Diagnosis Lumbar spinal stenosis with neurogenic claudication Discharge Data Allergies Allergy/AdvReac Type Severity Reaction Status Date / Time No Known Allergies Allergy Verified 07/03/21 08:37 Consultations 07/03/21 15:16 Consult Hospitalist Routine Procedures Performed Operation Date: 07/03/21 10:05 Actual Procedures p L2-S1 Decompression and Fusion with Bone Morphogenic Protein, Interbody Cage L4-L5 and L5-S1, Spinal Cord Monitoring(Not Applicable) - Steve Chavarria DO s L1-L2 Hardware Removal,(Not Applicable) - Steve Chavarria DO Ordered Studies 07/03/21 10:05 FL lumbar spine 2-3V Routine Hospital Course (1) Neurogenic claudication due to lumbar spinal stenosis: Patient with limited partial fusion trial exhausting orthopedic for possibly. Postop day #1 she was up and ambulating progressive postop day #2 and 3 leg pain improving back pain improving excellent strength testing. REMI drain decreasing appropriately. Subsequent discharge home. Discharge orders instructions from the chart for further review. Total Time Total Time Spent Total Time Spent (In Minutes): 20 minutes Discharge Plan Discharge Items Patient Disposition: Home - Self-Care Reason For Visit: Spinal Stenosis, Lumbar Region with Neurogenic Cl Discharge Diagnosis: Lumbar spinal stenosis with neurogenic claudication Activity: As commented below Non-emergency contact: Primary Care Provider Call non-emergency contact if: you have any medication questions Follow-up/Referrals: Goldy Tineo DO [Primary Care Provider] - Diet: Regular Addtl Attending Provider Instructions: ACTIVITY RECOMMENDATIONS: SELF CARE INSTRUCTIONS AFTER THORACIC/LUMBAR FUSIONS 1. You may walk to your tolerance. It is good exercise for your legs and back. Expect some back and intermittent leg aches and pains. 2. You may perform "counter-top" level activities (make a sandwich, nini with a project, etc.). 3. No bending or lifting of more than 10 pounds or back twisting of any nature (roll like a log when turning in bed). 4. You may ride in a car for 20-30 minutes at a time. No driving until after your first visit with your doctor. 5. Frequent changes of position and restricting sitting to 30 minutes at a time will help limit the amount of back spasms and stiffness you may experience. 6. You may discontinue the use of ambulatory aids (cane, crutches, etc.) once your strength and confidence allow. 7. You may manager inventory control the shower and let water strike your incision when you arrive home at least once daily. Do not take a tub bath, sit in a hot tub or go into a swimming pool until after your first recheck in the office. SPECIAL CARE INSTRUCTIONS: VERY IMPORTANT TO READ AND REVIEW A. Your surgical incision has been closed with a cosmetic suture under the skin that will dissolve in about 6 weeks. In 14 days, you can use a pair of clean scissors and cut the suture that is left outside of the skin at the ends of your incision. 1. The small skin tapes can be removed 7 days after surgery if they have not fallen off by that point. 2. You may keep the wound open to air as much as possible to promote healing after post-op day number 5 unless told otherwise by your doctor. 3. If you think the wound looks like it is becoming infected (redness or worsening drainage) and/or you are experiencing fever, chill or worsening back pain and muscle spasms, contact the office so that we may evaluate you as soon as possible. B. Complications are uncommon, but please contact us if you have any signs or symptoms of: 1. wound infection (fever higher than 102.5 degrees F, redness, separation of wound, drainage, or increasing pain from the incision) 2. blood clots in legs (pain, swelling, redness and warmth in legs) 3. urinary tract infection (fever higher than 102.5 degrees F, burning upon urination or increased frequency of urination) 4. nerve problems (inability to walk on your toes or heels, numbness, loss of bowel or bladder control) 5. any other symptoms that concern you C. Please call the office at if you have any concerns or questions about your operation or recovery. D. No smoking! Smoking drastically decreases the chance of a solid fusion. E. Do not take any anti-inflammatory medications (Indocin, Advil, Motrin, Aspirin, Naprosyn, etc.) as these may inhibit the chance of a solid fusion. Tylenol is okay to take for pain. MANAGING PAIN AFTER SPINAL SURGERY 1. Narcotic medication is intended for short-term use and will be provided for surgical pain. Surgical pain usually lasts for a period of 4-6 weeks. Narcotic medication includes Percocet, Vicodin, Darvocet, Tylenol #3 or Lortab. 2. Longer-term pain is more appropriately treated with non-narcotic medication such as Tylenol ES. 3. Muscle spasm is not appropriately treated with narcotics. Muscle relaxers such as Soma, Flexeril or Skelaxin can be used along with Tylenol ES. 4. Remember that we all live with some "aches and pains". This is not unusual or uncommon after an injury or as we get older. a. Back pain is expected and may include muscle spasms for 4 to 6 weeks after surgery. The pain should gradually improve. If the pain worsens for no apparent reason, please contact the office. b. Intermittent leg pain may also be experienced and should not be concerned about unless it worsens for no apparent reason. If so, please contact the office. 5. We will provide appropriate medication within the normal guidelines of their prescribed use. We will also be very cautious and aware of potential abuse and extended duration of patients' medication needs. a. Pain medications are for your comfort and to assist with sleep and rest so that the tissue can heal. They are not provided in order to return to normal activity and should not be used through the day. To do so or worsening pain at night can result from ongoing tissue damage and development of tolerance to the prescribed medicine. 6. Please allow 2-3 days to process refills. Prescriptions will not be mailed but must be picked up at the office. FOLLOW UP VISIT: Keep your scheduled follow-up appointment. Any questions, please call the office at . Pending Studies at Discharge: No Stand-Alone Forms: My [employer], Smoking Cessation Medications and DC Order Prescriptions: New tramadol 50 mg tablet 50 mg PO Q6H PRN (Reason: pain, moderate) Qty: 30 RF: 0 oxycodone 5 mg tablet 5 mg PO Q6H PRN (Reason: pain, severe) Qty: 30 RF: 0 Continued multivitamin Tablet 1 tab PO HS RF: 0 atorvastatin 20 mg Tablet 20 mg PO HS RF: 0 clomipramine 75 mg Capsule 75 mg PO HS RF: 0 alendronate 70 mg Tablet 70 mg PO WK RF: 0 aspirin [Aspir-81] 81 mg Tablet,Delayed Release (Dr/Ec) 81 mg PO HS RF: 0 leflunomide 20 mg Tablet 20 mg PO QAM RF: 0 levothyroxine 25 mcg Tablet 25 mcg PO QPM RF: 0 docusate sodium [Stool Softener] 100 mg Capsule 100 mg PO QAM RF: 0 Humira 40 mg/0.8 mL Syringe Kit 1 dose subcut UD RF: 0 turmeric 400 mg Capsule 500 mg PO HS RF: 0 Calcium 600 + D(3) 600 mg calcium- 200 unit Capsule 2 tab PO HS RF: 0 cholecalciferol (vitamin D3) [Vitamin D3] 2,000 unit Capsule 4,000 unit PO HS RF: 0 acetaminophen 500 mg Tablet 500 mg BID PRN (Reason: Pain) RF: 0 Cbd Oil 6 drp sublingual BID RF: 0 Discharge Orders: Discharge Order (Routine); Ordered 07/06/21 Ordered By: Steve Chavarria Admission Data Admit Date/Time: 07/03/21 13:39 Attending Provider: Steve Chavarria Admit Provider: Steve Chavarria Primary Care Provider: Goldy Tineo Other Providers: Ro Chanel ; Zachariah Reece ; Helen Thorpe
[2021-07-06 11:43] VITALS: BP 147/87
== END 2021-07-06 12:58 | disposition home or self-care (01) | DRG 454 ==
LOC: ASU 07:54 → 3E 13:39
DX: M81.0 Age-related osteoporosis without current pathological fracture; E78.5 Hyperlipidemia, unspecified; M06.9 Rheumatoid arthritis, unspecified; E03.9 Hypothyroidism, unspecified; Z83.3 Family history of diabetes mellitus; M48.062 Spinal stenosis, lumbar region with neurogenic claudication; D62 Acute posthemorrhagic anemia

== ENCOUNTER 2023-04-21 08:25 | Inpatient (IN) ==
--- NOTE | 2023-03-24 11:45 | PAT Medication Instructions ---
Medication Instructions Date of Service March 24, 2023 Home Medications Medication Instructions Recorded oxycodone 5 mg tablet 5 mg PO Q6H PRN pain, severe #30 07/04/21 tabs tramadol 50 mg tablet 50 mg PO Q6H PRN pain, moderate 07/04/21 #30 tabs adalimumab 40 mg/0.8 mL subcutaneous syringe kit (Humira) 1 dose subcut UD aspirin 81 mg tablet,delayed release (Aspir-) 81 mg PO PM atorvastatin 20 mg tablet 20 mg PO PM clomipramine 75 mg capsule 150 mg PO HS docusate sodium 100 mg capsule (Stool Softener) 100 mg PO QAM levothyroxine 25 mcg tablet 25 mcg PO QAM turmeric 400 mg capsule 500 mg PO HS acetaminophen 500 mg tablet 1,000 mg PO BID PRN oxycodone 5 mg tablet 5 mg PO Q6H PRN tramadol 50 mg tablet 50 mg PO Q6H PRN omeprazole 20 mg tablet,delayed release 20 mg PO QDD prednisolone acetate 1 % eye drops,suspension 1 drp ophthalmic (eye) DAILY propranolol 10 mg tablet 10 mg PO QAM Continue as directed prednisolone acetate 1 % eye drops,suspension 1 drp ophthalmic (eye) DAILY omeprazole 20 mg tablet,delayed release 20 mg PO QDD ASK your prescriber and surgeon adalimumab 40 mg/0.8 mL subcutaneous syringe kit (Humira) 1 dose subcut UD STOP taking 2 weeks before surgery (or as soon as possible if surgery is within 2 weeks) turmeric 400 mg capsule 500 mg PO HS DO NOT take the morning of surgery docusate sodium 100 mg capsule (Stool Softener) 100 mg PO QAM Take morning of surgery With a small sip of water, OTHERWISE NOTHING TO EAT OR DRINK AFTER MIDNIGHT: levothyroxine 25 mcg tablet 25 mcg PO QAM propranolol 10 mg tablet 10 mg PO QAM acetaminophen 500 mg tablet 1,000 mg PO BID PRN(if needed) oxycodone 5 mg tablet 5 mg PO Q6H PRN(if needed) tramadol 50 mg tablet 50 mg PO Q6H PRN(if needed) Take evening before surgery aspirin 81 mg tablet,delayed release (Aspir-) 81 mg PO PM (unless directed otherwise by surgeon) atorvastatin 20 mg tablet 20 mg PO PM clomipramine 75 mg capsule 150 mg PO HS acetaminophen 500 mg tablet 1,000 mg PO BID PRN(if needed) oxycodone 5 mg tablet 5 mg PO Q6H PRN(if needed) tramadol 50 mg tablet 50 mg PO Q6H PRN(if needed) Other Notes If you have any questions please call us at [phone] or [phone] or [phone] or [phone]
--- NOTE | 2023-04-01 11:27 | Anesthesiology Consultation ---
Date of Service April 01, 2023 Assessment & Plan (1) Encounter for pre-operative examination: - COVID screening: Per assessment on 04/01: No known COVID-19 positive contacts or current COVID-19 related symptoms. Travel screen negative. Patient vaccinated. At surgeon discretion if preop Covid testing being done. - Outpatient joint pathway: Pt currently scheduled for inpatient pathway. Patient reports that discussion with surgeon was that patient was going to be staying overnight post-operatively. Based on available information, patient not recommended for outpatient joint pathway. If surgeon wishes further review for outpatient joint pathway consideration, will need to obtain further information from patient and discuss with anesthesiologist. - Abnormal preop CXR: Per CXR performed 04/01/23, "There is interval development of endplate irregularity with severe disc space narrowing and anterolisthesis at this level, new from 04/30/2021. Correlate clinically to exclude discitis/osteomyelitis." Note written to PCP. Awaiting CXR response + surgeon- ordered PCP preop evaluation (Dr. Goldy Tineo, preop appt done 03/24). Chart Review Chart Review: Patient seen in Pre Admission Testing Teaching & Discussion Pre-Anesthesia Teaching/Discussion Notes: Instructed NPO after midnight before surgery,except medications with 15 cc of water. Medication instructions provided according to the PAT guidelines. History Surgery Operation Date: 04/21/23 07:30 Proposed Procedures p Right Total Knee Arthroplasty - Miky Morrison MD Height/Weight Height: 5 ft Weight: 51.4 kg Allergies Allergy/AdvReac Type Severity Reaction Status Date / Time No Known Allergies Allergy Verified 03/24/23 10:51 Medications Home Medications Medication Instructions Recorded Confirmed Last Taken adalimumab 40 mg/0.8 mL 1 dose subcut UD 10/30/18 03/24/23 06/14/21 subcutaneous syringe kit (Humira) aspirin 81 mg tablet,delayed 81 mg PO PM 10/30/18 03/24/23 2 Weeks Ago release (Aspir-) ~06/19/21 atorvastatin 20 mg tablet 20 mg PO PM 10/30/18 03/24/23 07/02/21 17:00 clomipramine 75 mg capsule 150 mg PO HS 10/30/18 03/24/23 07/02/21 17:00 levothyroxine 25 mcg tablet 25 mcg PO QAM 10/30/18 03/24/2307/02/21 17:00 acetaminophen 500 mg tablet 1,000 mg PO BID PRN Pain 06/21/21 03/24/23 07/02/21 14:00 omeprazole 20 mg tablet,delayed 20 mg PO QDD 03/24/23 03/24/23 Unknown release prednisolone acetate 1 % eye 1 drp ophthalmic (eye) DAILY 03/24/23 03/24/23 Unknown drops,suspension propranolol 10 mg tablet 10 mg PO QAM 03/24/23 03/24/23 Unknown Past Medical History Medical History Anemia Chronic, hgb baseline 10s per chart review Depression Gastric ulcer Taking PPI, no current issues Hyperlipidemia Hypothyroidism Low blood pressure Baseline BP low to normal range Lung nodule, multiple Under surveillance OCD (obsessive compulsive disorder) Osteoporosis Rheumatoid arthritis Primarily affecting hands Taking Humira Tremor Reason for propranolol Hands Exercise / Class Metabolic Activity III < 4 Walking/Shop/Light housework Past Family History Family History Grandmother (Paternal) Family history of diabetes mellitus Father Family history of diabetes mellitus Past Surgical History Surgical History History of appendectomy History of bilateral tubal ligation History of cataract surgery R/L History of colonoscopy History of dilatation and curettage x2 History of esophagogastroduodenoscopy (EGD) History of foot surgery Right hammertoe repairs History of spinal surgery L1-L2 lumbar decompression (11/10/18): Grade 2 view, MAC#3, ETT 7.0 at [facility] L2-S1 decompression/fusion, L1-L2 hardware removal (07/03/21): Grade view 3, MAC#3, ETT 7 at [facility] History of tooth extraction WTE Nausea and vomiting after administration of anesthetic agent Ovarian cyst Removal Past Anesthesia History No Hx of Anesthesia Complications (except PONV) Sister- slow to wake History of PONV No Hx of Motion Sickness and History of PONV Social History Smoking Status: Never smoker Do You Dip or Chew Tobacco: No Hx Alcohol Use: Yes Alcohol type: beer and wine alcohol intake frequency: holidays/special occasions only Hx Substance Use: No substance use type: does not use Review of Systems Patient denies chest pain, shortness of breath, fever, chills, cough, wheezing, palpitations. Physical Exam Vital Signs VITALS BP 115/72 P 65 TEMP 98.2 SP02 95%RA RESP 16 PHYSICAL Full cervical extension range of motion. Full TMJ range of motion. TMD 3 finger breaths Mallampati Score 3 Dentition: intact Lungs: clear throughout to auscultation Cardiac: regular rate and rhythm, no murmurs noted Spine: normal Carotid arteries: negative bruit Extremities: no LE edema Lab Results Anesthesia Preop Results Results Anesthesia Widget: WBC 7.94 K/ul (4.8-10.8) 04/01/23 Hgb 10.9 g/dl (12.0-16.0) L 04/01/23 Hct 32.1 % (37.0-47.0) L 04/01/23 Plt 344 K/uL (130-400) 04/01/23 Na 133 mmol/L (136-145) L 04/01/23 K 4.6 mmol/L (3.5-5.1) 04/01/23 Cl 100 mmol/L (98-107) 04/01/23 CO2 27 mmol/L (21-32) 04/01/23 BUN 27 mg/dl (6-23) H 04/01/23 Creat 1.00 mg/dl (0.6-1.2) 04/01/23 Glucose Level 104 mg/dl (70-99(Fasting)) H 04/01/23 PT 10.8 Seconds (9.0-12.0) 04/01/23 PTT 27.0 Seconds (21.0-31.0) 04/01/23 INR 1.0 (0.9-1.1) 04/01/23 Blood Type O Positive 04/01/23 Antibody Screen NEGATIVE 04/01/23 Testing Electrocardiogram Date: 04/01/23 NSR at 66bpm. LAD. Chest X-Ray Date: 04/01/23 FINDINGS: Cardiomediastinal and hilar silhouettes are unchanged. Atherosclerosis of the aorta. No pneumothorax, pleural effusion or overt pulmonary edema. Mild chronic interstitial coarsening. Mild bibasilar atelectasis. Degenerative c hanges of the shoulders and spine. Posterior to right carotid screw fusion hardware is noted at L1-L2. The L1 pedicle screws extend into the T12-L1 intervertebral disc space where there is mild kyphosis with 7 mm anterolisthesis and interval development of severe disc space narrowing. IMPRESSION: Cardiomegaly without acute cardiopulmonary abnormality. Partially imaged lumbar spinal fusion hardware with the L1 pedicle screws extending into the T12-L1 disc space. There is interval development of endplate irregularity with severe disc space narrowing and anterolisthesis at this level, new from . Correlate clinically to exclude discitis/osteomyelitis. COVID-19 Risk Screen Screening Information COVID-19 Screen Date: 04/01/23 Exposure 21 Days Family/Household +COVID Last 21 Days: No Exposure 10 Days Any COVID Exposure Last 10 Days: No Symptoms Last 10 Days Experienced COVID Sx Last 10 Days: No + COVID 0-90 Days COVID + in Last 0-90 Days: No
[~2023-04-21 08:25] MED LIST changes: +BUPIVACAINE 0.5 % 5 MG/1 ML PF 10ML VIAL ONE; -CeleBREX 200 MG CAP PO SCH; +FAMOTIDINE 20 MG TAB PO SCH; -GABAPENTIN 300 MG CAP PO SCH; -LR 15ML/HR IV SCH; +LR 500ML BOLUS, THEN 15ML/HR IV SCH; +METOCLOPRAMIDE HCL 10 MG TABLET PO SCH; +PREGABALIN 75 MG CAP PO SCH; +ROPIVACAINE 0.5% 5 MG/ML 30 ML VIAL ONE; +ROPIVACAINE 0.5% HCL/PF 150 MG, BUPIVACAINE 0.75% MPF 20 ML, EPINEPHrine 30MG/30ML (OR ... INSTIL SCH; -ceFAZolin 1000MG 1,000 MG/7.5 ML SYR IV SCH; +ceFAZolin 2000MG 2,000 MG/15 ML SYR IV SCH; +dexAMETHasone 4 MG TAB PO SCH
[2023-04-21] MEDS ORDERED: ONDANSETRON INJ 2 MG/ML 2 ML VIAL IV PRN ×2 (10:16→13:08)
[2023-04-21] MEDS ORDERED: ePHEDrine sulfate 50 MG/ML AMP IV PRN (10:16)
[2023-04-21] MEDS ORDERED: ATROPINE SULFATE 0.1 MG/ML 10ML SYR IV PRN (10:16)
[2023-04-21] MEDS ORDERED: fentaNYL citrate PF 100 MCG/2 ML VIAL IV PRN (10:16)
[2023-04-21] MEDS ORDERED: PROPOFOL IV EMULSION 10 MG/ML 20 ML VIAL IV ONE (10:17)
[2023-04-21] MEDS ORDERED: fentaNYL citrate PF 100 MCG/2 ML VIAL ONE (10:18)
[2023-04-21] MEDS ORDERED: MIDAZOLAM HCL 1 MG/ML 2ML VIAL ONE (10:18)
--- NOTE | 2023-04-21 11:01 | History & Physical Report ---
Date of Service April 21, 2023 Assessment & Plan (1) Primary osteoarthritis of right knee: Plan: I have recommended a right total knee replacement. I explained the risk benefits and alternatives to her and she has consented to proceed. Plan is for 23-hour observation. History of Present Illness Chief Complaint: Right knee Pain Primary Care Provider: Goldy Tineo DO Hien is a 77-year-old woman with right knee pain for several years. After failure of conservative treatment I recommended proceeding with a right total knee replacement. I explained the risk benefits and alternatives to her and she consented to proceed. Allergies Allergy/AdvReac Type Severity Reaction Status Date / Time No Known Allergies Allergy Verified 04/21/23 09:18 Home Medications Medication Instructions Recorded Confirmed Type adalimumab 40 mg/0.8 mL 1 dose subcut UD 10/30/18 04/21/23 History subcutaneous syringe kit (Humira) aspirin 81 mg tablet,delayed 81 mg PO PM 10/30/18 04/21/23 History release (Aspir-) atorvastatin 20 mg tablet 20 mg PO PM 10/30/18 04/21/23 History clomipramine 75 mg capsule 150 mg PO HS 10/30/18 04/21/23 History levothyroxine 25 mcg tablet 25 mcg PO QAM 10/30/18 04/21/23 History acetaminophen 500 mg tablet 1,000 mg PO BID PRN Pain 06/21/21 04/21/23 History omeprazole 20 mg tablet,delayed 20 mg PO QDD 03/24/23 04/21/23 History release prednisolone acetate 1 % eye 1 drp ophthalmic (eye) DAILY 03/24/23 04/21/23 History drops,suspension propranolol 10 mg tablet 10 mg PO QAM 03/24/23 04/21/23 History Past Med/Surg History Medical History Anemia Chronic, hgb baseline 10s per chart review Depression Gastric ulcer Taking PPI, no current issues Hyperlipidemia Hypothyroidism Low blood pressure Baseline BP low to normal range Lung nodule, multiple Under surveillance OCD (obsessive compulsive disorder) Osteoporosis Rheumatoid arthritis Primarily affecting hands Taking Humira Tremor Reason for propranolol Hands Surgical History History of appendectomy History of bilateral tubal ligation History of cataract surgery R/L History of colonoscopy History of dilatation and curettage x2 History of esophagogastroduodenoscopy (EGD) History of foot surgery Right hammertoe repairs History of spinal surgery L1-L2 lumbar decompression (11/10/18): Grade 2 view, MAC#3, ETT 7.0 at [facility] L2-S1 decompression/fusion, L1-L2 hardware removal (07/03/21): Grade view 3, MAC#3, ETT 7 at [facility] History of tooth extraction WTE Nausea and vomiting after administration of anesthetic agent Ovarian cyst Removal Family History Grandmother (Paternal) Family history of diabetes mellitus Father Family history of diabetes mellitus Social History Smoking Status: Never smoker Second Hand Exposure: No; Do You Dip or Chew Tobacco: No; Tobacco Cessation Education Requested by Patient: No Hx Alcohol Use: Yes Alcohol type: beer and wine Hx Substance Use: No Preferred Language: Citizen Of [place] Communication Ability: Effective Poly Packer And Heat Sealer Required: No Beliefs That Will Affect Care: None marital status: Current Living Situation: Spouse Other Information That Helps Us Care for You: No Feels Safe at Home: Yes Safety Concerns: Feels Safe At This Time Assistive Devices: Glasses and Walker Physical Exam Constitutional: Awake alert and oriented. No acute distress. Eyes: Clear ENMT: Clear Neck: Supple Respiratory: Clear to auscultation Cardiovascular: Regular rate and rhythm Musculoskeletal: Right knee decreased range of motion. Crepitus with range of motion. Medial and lateral tenderness. Moderate effusion. Results & Data Results & Data Vital Signs (Past 12 Hours) Vital Signs Temp Pulse Resp BP Pulse Ox O2 Del Method 04/21/23 09:14 36.6 C 63 18 154/85 H 98 Room Air
[2023-04-21] MEDS ORDERED: ORTHO JOINT ANESTHETIC ONE (11:26)
[2023-04-21] MEDS ORDERED: TRANEXAMIC ACID / 0.7% NACL 1000MG/100ML BAG IV ONE (12:17)
[2023-04-21] MEDS ORDERED: ONDANSETRON INJ 2 MG/ML 2 ML VIAL ONE (12:50)
--- NOTE | 2023-04-21 13:03 | Post Operative Brief Note ---
Immediate Post Op Note v1 Date of Surgery April 21, 2023 Pre & Post Diagnosis Operation Date: 04/21/23 10:55 Pre-Op Diagnosis: Primary osteoarthritis of right knee Post-Op Diagnosis: Primary osteoarthritis of right knee I identified the patient and participated in the time-out.: Yes Procedure Operation Date: 04/21/23 10:55 Actual Procedures p Right Total Knee Arthroplasty, Cemented(Right) - Miky Morrison MD Surgeon Miky Morrison MD Company Dancer Sabrina Munoz PA-C Estimated Blood Loss 5 Findings Consistent with Post-Op Diagnosis Osteoarthritis Anesthesia Type MAC Spinal Regional Complications No complications
--- NOTE | 2023-04-21 13:05 | Operative Report ---
Post Operative Report Pre & Post Diagnosis Operation Date: 04/21/23 10:55 Pre-Op Diagnosis: Primary osteoarthritis of right knee Post-Op Diagnosis: Primary osteoarthritis of right knee I identified the patient and participated in the time-out.: Yes Procedure Operation Date: 04/21/23 10:55 Actual Procedures p Right Total Knee Arthroplasty, Cemented(Right) - Miky Morrison MD Surgeon Miky Morrison MD Clinical Services Consultant Sabrina Munoz PA-C Estimated Blood Loss 5 Findings Consistent with Post-Op Diagnosis Osteoarthritis right knee Specimens Bone and cartilage right knee Anesthesia Type MAC Spinal Regional Complications No complications Indications Hien is a 77-year-old woman suffering from rheumatoid arthritis noting increasing pain and dysfunction with her right knee. Evaluation confirmed arthritic changes. After the failure of conservative treatment I recommended total knee replacement. I explained the risk benefits and alternatives to her and she consented to proceed. Description of Procedure Implants: [place] triathlon cemented cruciate retaining total knee replacement. Femur size 3. Tibia sized to primary baseplate. Polyethylene size 2 x 9 mm cruciate stabilized. Patella size 33 mm symmetrical. Procedure: The patient was taken to the operating room and after verifying their identity and confirming the operative side spinal anesthesia and a regional block was administered. A nonsterile tourniquet was placed on the operative leg and the operative leg was sterilely prepped and draped in usual fashion. After exsanguinating the leg and inflating the tourniquet a 6 inch incision was made over the patella and carried sharply through subcutaneous tissue. A medial parapatellar arthrotomy was performed, the patella was everted, and planed to a thickness of 14 mm. The appropriate size patella was trialed and the drill holes were completed. The knee was flexed and the femur cleaned of soft tissue. The femoral intramedullary guide was utilized to take a 5 valgus cut 10 mm total resection. The distal femur cut was completed. The cutting guide was removed. The AP sizing guide was placed in the correct size determined. The appropriately sized sized 4 in 1 cutting guide was placed and its position confirmed with the epicondyle axis and anterior cortex. The cuts were completed. The tibia was subluxed forward and the extra medullary tibial guide was placed and pinned in place. A 2 mm resection was measured on the medial tibial plateau perpendicular to the long axis of the tibia. The proximal tibia was cut. The guide was removed. A lamina spring fitter helper was placed with the knee in 90 of flexion in the remaining meniscus and posterior soft tissue were removed. The PCL was preserved. 20 cc of local injection was utilized in the posterior capsule and soft tissues. The knee was balanced in flexion and extension utilizing the gap drupal architect. The tibia was subluxed forward and the appropriately sized trial was placed and pinned in place. The femoral trial was placed and the appropriate size poly-was utilized to achieve full extension, full flexion and good stability to varus and valgus stress. Trial components were all removed. The knee was thoroughly irrigated with pulse lavage, bacteriocidal wash, and a repeat pulse lavage. 20 cc of local injection was utilized in the medial tissues and 20 cc in the lateral tissues. Antibiotic cement was mixed using vacuum technique in the tibial and femoral components were cemented in place. The poly-was inserted and the knee held in full extension while the cement hardened. The patella was cemented and clamped. Excess cement was carefully removed. After the cement hardened range of motion was once again assessed and noted to be full including full extension and good stability to varus and valgus stress with central patellar tracking. The knee was irrigated with pulse lavage, a bacteriocidal wash, and a repeat pulse lavage. 20 cc of local was used in the anterior subcutaneous tissues. The arthrotomy was closed with #1 Ethibond, the remaining incision with 2-0 Vicryl and derrick. A silver dressing was applied and a compression wrap. The patient tolerated the procedure well and there were no intraoperative complications. Sabrina Munoz PA-C assisted in all aspects of the procedure including patient positioning, prepping and draping, manipulation of surgical instruments and retractors, wound closure, dressing placement, and compression wrap placement. I attest to the content of the Intraoperative Record and any orders documented therein. Any exceptions are noted below.
[2023-04-21] MEDS ORDERED: MAGNESIUM HYDROXIDE SUSP 30 ML UDC PO PRN (13:08)
[2023-04-21] MEDS ORDERED: NALOXONE HCL 0.4 MG/1 ML VIAL/CARP IV PRN (13:08)
[2023-04-21] MEDS ORDERED: METOCLOPRAMIDE HCL INJ 5 MG/ML 2 ML VIAL IV PRN (13:08)
[2023-04-21] MEDS ORDERED: bisacodyL 10 MG SUPP PR PRN (13:08)
[2023-04-21] MEDS ORDERED: LABETALOL HCL IV 5 MG/ML 20ML IV ONE (14:01)
--- NOTE | 2023-04-21 14:30 | Anesthesiology Progress Note ---
Date of Service April 21, 2023 Anesthesia Post Procedure Vital Signs Vital Signs: Temp Pulse Resp BP Pulse Ox O2 Del Method 04/21/23 09:14 97.9 F 63 18 154/85 H 98 Room Air Transfer of Care Handoff Completed per policy Notes Mental Status: alert / awake / arousable, participated in evaluation and see notes below Patient Amnestic to Procedure: Yes Nausea / Vomiting: adequately controlled Pain: adequately controlled Airway Patency, RR, SpO2: stable & adequate BP & HR: stable & adequate Hydration State: stable & adequate Anesthetic Complications: no major complications apparent and Pt Satisfied with anesthetic care Notes: patient somnolent with tremors at baseline, patient appears to be at baseline from mental status standpoint
[2023-04-21] MEDS: SODIUM CHLORIDE 0.9% 1000ML 1,000 ML IV SCH (15:34)
[2023-04-21] MEDS: ACETAMINOPHEN 500 MG TAB PO SCH ×2 (15:50→23:22)
--- NOTE | 2023-04-21 17:26 | Hospitalist Consultation ---
Date of Consultation April 21, 2023 Assessment & Plan (1) Primary osteoarthritis of right knee: status post right total knee arthroplasty 04/21/[address] Morrison has post procedure possible toxic encephalopathy from anesthesia, hold additional meds including home clomapramine stop am decadron until re eval in the am (2) Rheumatoid arthritis: Humara on hold at this time (3) Hypothyroidism: continue syntnroid (4) Hyperlipidemia: hold atorvastatin Plan dvt prevention is asprin 81 mg bid History of Present Illness Attending Physician: Miky Morrison MD History of Present Illness medical management consultation on 77-year-old Bron who underwent a right total knee arthroplasty 04/21/2023. post procedure patient has some confusion some tremors she speaks in a low mumbling voice. Patient has had preoperative Lyrica which at times can cause some unusual reactions post procedure, patient can spontaneously move all extremities she has tremors or kind of fidgeting picking movements with might be dyskinetic movements she offers no focal complaints or distress her pain control from surgery seems to be in check Allergies Allergy/AdvReac Type Severity Reaction Status Date / Time No Known Allergies Allergy Verified 04/21/23 09:18 Home Medications Medication Instructions Recorded Confirmed Type adalimumab 40 mg/0.8 mL 1 dose subcut UD 10/30/18 04/21/23 History subcutaneous syringe kit (Humira) aspirin 81 mg tablet,delayed 81 mg PO PM 10/30/18 04/21/23 History release (Aspir-) atorvastatin 20 mg tablet 20 mg PO PM 10/30/18 04/21/23 History clomipramine 75 mg capsule 150 mg PO HS 10/30/18 04/21/23 History levothyroxine 25 mcg tablet 25 mcg PO QAM 10/30/18 04/21/23 History acetaminophen 500 mg tablet 1,000 mg PO BID PRN Pain 06/21/21 04/21/23 History omeprazole 20 mg tablet,delayed 20 mg PO QDD 03/24/23 04/21/23 History release prednisolone acetate 1 % eye 1 drp ophthalmic (eye) DAILY 03/24/23 04/21/23 History drops,suspension propranolol 10 mg tablet 10 mg PO QAM 03/24/23 04/21/23 History Patient History Medical History (Updated 04/21/23 @ 17:28 by Martínez Gamez MD) Anemia Chronic, hgb baseline 10s per chart review Depression Gastric ulcer Taking PPI, no current issues Hyperlipidemia Hypothyroidism Low blood pressure Baseline BP low to normal range Lung nodule, multiple Under surveillance OCD (obsessive compulsive disorder) Osteoporosis Rheumatoid arthritis Primarily affecting hands Taking Humira Tremor Reason for propranolol Hands Surgical History History of appendectomy History of bilateral tubal ligation History of cataract surgery R/L History of colonoscopy History of dilatation and curettage x2 History of esophagogastroduodenoscopy (EGD) History of foot surgery Right hammertoe repairs History of spinal surgery L1-L2 lumbar decompression (11/10/18): Grade 2 view, MAC#3, ETT 7.0 at [facility] L2-S1 decompression/fusion, L1-L2 hardware removal (07/03/21): Grade view 3, MAC#3, ETT 7 at [facility] History of tooth extraction WTE Nausea and vomiting after administration of anesthetic agent Ovarian cyst Removal Family History Grandmother (Paternal) Family history of diabetes mellitus Father Family history of diabetes mellitus Social History Smoking Status: Never smoker Second Hand Exposure: No; Do You Dip or Chew Tobacco: No; Tobacco Cessation Education Requested by Patient: No Hx Alcohol Use: Yes Alcohol type: beer and wine Hx Substance Use: No Preferred Language: [place] Communication Ability: Effective Tailor'S Aide Required: No Beliefs That Will Affect Care: None marital status: Current Living Situation: Spouse Other Information That Helps Us Care for You: No Feels Safe at Home: Yes Safety Concerns: Feels Safe At This Time Assistive Devices: Glasses and Walker Review of Systems Review of Systems: mild distress and fatigue no headache, no visual changes Patient has mumbling speech but is able to speak in a slow quiet voice no chest pain, pressure or palpitations no shortness of breath, cough or wheezes no abdominal pain, nausea or vomiting, diarrhea or constipation no dysuria, hematuria or frequency has focal right leg pain from her surgical site no back pain, CVA tenderness or radicular pain no bruising, bleeding or rashes no focal signs of weakness or numbness or altered sensation has some tremors Physical Exam Physical Exam: the patient appeared well nourished and normally developed. Vital signs as documented. Head exam is normocephalic atraumatic Neck is without JVD, thyromegaly, or carotid bruits. Lungs are clear to auscultation, no focal loss of breath sounds Cardiac exam, Rhythm is regular.. No murmurs, rubs or gallops. Abdominal exam reveals normal bowel sounds, soft non tender, no masses Neurologic exam is alert she has some dyskinetic movements and tremulous movement Skin is without bruises or rashes Results & Data Results & Data Vital Signs (Past 12 Hours) Vital Signs Temp Pulse Pulse Pulse Pulse Resp BP 04/21/23 17:12 180/92 H 04/21/23 17:06 98.8 F 88 18 04/21/23 16:06 98.4 F 74 14 04/21/23 15:37 97.5 F L 73 16 04/21/23 15:23 98.1 F 71 16 04/21/23 14:30 97.5 F L 63 17 04/21/23 14:20 97.5 F L 64 16 04/21/23 14:10 97.5 F L 62 12 04/21/23 14:00 76 13 04/21/23 13:50 76 12 04/21/23 14:50 97.5 F L 64 15 04/21/23 14:40 97.5 F L 64 13 04/21/23 13:40 97.5 F L 72 16 04/21/23 13:33 97.5 F L 66 16 04/21/23 09:14 97.9 F 63 18 BP Pulse Ox O2 Del Method O2 Flow Rate 04/21/23 17:12 04/21/23 17:06 169/99 H 98 Room Air 04/21/23 16:06 173/92 H 97 Nasal Cannula 1 04/21/23 15:37 167/95 H 98 Room Air 04/21/23 15:23 160/98 H 16 L Nasal Cannula 2 04/21/23 14:30 166/95 H 96 Oxymask 1 04/21/23 14:20 177/98 H 98 Oxymask 3 04/21/23 14:10 172/100 H 97 Oxymask 3 04/21/23 14:00 188/112 H 95 Oxymask 3 04/21/23 13:50 195/112 H 99 Oxymask 5 04/21/23 14:50 145/95 H 93 Room Air 04/21/23 14:40 163/88 H 98 Oxymask 1 04/21/23 13:40 205/116 H 94 Oxymask 7 04/21/23 13:33 177/123 H 100 Oxymask 7 04/21/23 09:14 154/85 H 98 Room Air PG Care Time/CCT Total # of Minutes Spent Total Time Spent with Patient: Total time spent is greater than 50% in coordination of care (as documented) at patient's floor/unit and/or counseling patient: Coding Level of Care Code 50488 IN/OBS CONSULT LVL 3,45M Diagnoses Primary osteoarthritis of right knee M17.11 Rheumatoid arthritis M06.9 Hypothyroidism E03.9 Hyperlipidemia E78.5
[2023-04-21] MEDS ORDERED: hydrALAZINE HCL 20 MG/ML VIAL IV PRN (17:28)
[2023-04-21] MEDS: PANTOprazole 40 MG TAB PO SCH (18:16)
[2023-04-21] MEDS: ceFAZolin 1000MG 1,000 MG/7.5 ML SYR IV SCH (19:59)
[2023-04-21] MEDS: ASPIRIN 81 MG ECTAB PO SCH (20:02)
[2023-04-21] MEDS: DOCUSATE SODIUM 100 MG CAP PO SCH (20:02)
[2023-04-21] MEDS: CeleBREX 200 MG CAP PO SCH (20:02)
[2023-04-21] MEDS ORDERED: CLOMIPRAMINE 75 MG PO SCH ×2 (21:00)
[2023-04-21] MEDS ORDERED: ATORVASTATIN 20 MG TAB PO SCH (21:00)
[2023-04-22] MEDS: SODIUM CHLORIDE 0.9% 1000ML 1,000 ML IV SCH (00:21)
[2023-04-22] MEDS: ceFAZolin 1000MG 1,000 MG/7.5 ML SYR IV SCH (03:49)
[2023-04-22] MEDS: LEVOTHYROXINE SODIUM 25 MCG TABLET PO SCH (05:37)
[2023-04-22] MEDS: ACETAMINOPHEN 500 MG TAB PO SCH ×3 (05:37→21:55)
[2023-04-22 06:22] LABS: Hematocrit (blood only) 30.1 % (37.0-47.0); Hemoglobin 10.2 g/dl (12.0-16.0); Mean Corpuscular Hemoglobin 33.2 pg (25.0-34.0); Mean Corpuscular Hgb Conc 33.9 g/dL (32.0-36.0); Mean Platelet Volume 8.8 fL (9.4-12.4); Platelet Count 309 K/uL (130-400); RDW Standard Deviation 50.4 fL (36.4-46.3); Red Blood Count 3.07 M/uL (4.20-5.40); White Blood Count 12.62 K/ul (4.8-10.8)
[2023-04-22 06:48] LABS: BUN Creatinine Ratio 30.7 (10-20); Calcium 8.5 mg/dl (8.6-10.3); Creatinine Clr Calc Pharmacy 49.7 ml/min; Est GFR (African American) 89.7 ml/min; Est GFR (Non-African American) 77.4 ml/min; Potassium 4.2 mmol/L (3.5-5.1)
[2023-04-22] MEDS: DOCUSATE SODIUM 100 MG CAP PO SCH ×2 (07:36→21:55)
[2023-04-22] MEDS: CeleBREX 200 MG CAP PO SCH (07:36)
[2023-04-22] MEDS: PROPRANOLOL HCL 10 MG TAB PO SCH (07:36)
[2023-04-22] MEDS: ASPIRIN 81 MG ECTAB PO SCH ×2 (07:36→21:55)
[2023-04-22] MEDS: MULTIVITAMIN TAB PO SCH (07:36)
[2023-04-22] MEDS: prednisoLONE acetate 1% OP SUSP 5 ML BTL OP SCH (07:36)
[2023-04-22] MEDS ORDERED: dexAMETHasone 10 MG in SYRINGE 0 ML IV SCH (08:00)
--- NOTE | 2023-04-22 08:00 | Orthopedic Progress Note ---
Date of Service April 22, 2023 Assessment & Plan (1) Primary osteoarthritis of right knee: Plan: Postop day 1 status post right total knee arthroplasty Confusion-as per hospitalist service. Medications being held currently. PT/OT protocols. Weightbearing as tolerated if able to tolerate but will depend on patient's ability to understand. May have to hold PT today. DVT prophylaxis-aspirin p.o. twice daily, SCDs, SONDRA hose. Pain management-as written. Some medications on hold at this time. Admission and Anticipated Discharge Date Admission Date: April 21, 2023 Subjective Postop day 1 Patient is very confused overnight through this morning. Patient was seen by Dr. Soria in consult for her confusion. This morning she is awake but is not answering questions appropriate at certain points. She does state that she is having some pain in her operative knee but is not oriented to place and time. Patient is constantly fidgeting in her bed and adjusting her blankets. Nursing is trying to get her to take her medications with a sip of juice however the patient does not understand the use of the straw other than to blow through. She does not appear acutely ill. Physical Exam Physical Exam: Confused. Dressings are clean, dry, and intact. Calves appear to be nontender. She appears to be moving her foot on the right lower extremity. Results & Data Vital Signs (Past 12 Hours) Vital Signs Temp Pulse Pulse Resp BP Pulse Ox O2 Del Method 04/22/23 03:00 36.8 C 101 H 20 145/87 H 98 Room Air 04/21/23 23:00 36.9 C 89 18 147/85 H 95 Room Air 04/21/23 20:05 37.0 C 90 18 146/88 H 97 Room Air Laboratory Results Laboratory Results WBC 12.62 K/ul (4.8-10.8) H 04/22/23 06:01 RBC 3.07 M/uL (4.20-5.40) L 04/22/23 06:01 Hgb 10.2 g/dl (12.0-16.0) L 04/22/23 06:01 Hct 30.1 % (37.0-47.0) L 04/22/23 06:01 MCV 98.0 fL (80.0-100.0) 04/22/23 06:01 MCH 33.2 pg (25.0-34.0) 04/22/23 06:01 MCHC 33.9 g/dL (32.0-36.0) 04/22/23 06:01 RDW Std Deviation 50.4 fL (36.4-46.3) H 04/22/23 06:01 RDW Coeff of [place] 14.0 % (11.5-14.5) 04/22/23 06:01 Plt Count 309 K/uL (130-400) 04/22/23 06:01 MPV 8.8 fL (9.4-12.4) L 04/22/23 06:01 Sodium 134 mmol/L (136-145) L 04/22/23 06:01 Potassium 4.2 mmol/L (3.5-5.1) 04/22/23 06:01 Chloride 103 mmol/L (98-107) 04/22/23 06:01 Carbon Dioxide 22 mmol/L (21-32) 04/22/23 06:01 Anion Gap 9 (3-11) 04/22/23 06:01 BUN 23 mg/dl (6-23) 04/22/23 06:01 Creatinine 0.75 mg/dl (0.6-1.2) 04/22/23 06:01 Est Cr Clr Drug Dosing 49.7 ml/min 04/22/23 06:01 Est GFR ( Amer) 89.7 ml/min 04/22/23 06:01 Est GFR (Non-Af Amer) 77.4 ml/min 04/22/23 06:01 BUN/Creatinine Ratio 30.7 (10-20) H 04/22/23 06:01 Glucose 129 mg/dl (70-99(Fasting)) H 04/22/23 06:01 Calcium 8.5 mg/dl (8.6-10.3) L 04/22/23 06:01 SARS-CoV-2, RNA, NAAT NEGATIVE (NEGATIVE) 04/21/23 08:50
[2023-04-22] MEDS: oxyCODONE HCL IR 5 MG TAB (IMMEDIATE RELEASE) PO PRN ×2 (08:39→17:15)
--- NOTE | 2023-04-22 16:19 | Hospitalist Progress Note ---
Date of Service April 22, 2023 Assessment & Plan (1) Primary osteoarthritis of right knee: Plan: status post right total knee arthroplasty 04/21/[address] Morrison has post procedure possible toxic encephalopathy from anesthesia, hold additional meds including home clomapramine stop am decadron remain confused we will perform CT scan head urine culture and begin thiamine therapy although no concrete history patient is at alcohol use or not she still may be thiamine deficient distill to be encephalopathy from medications (2) Rheumatoid arthritis: Plan: Humara on hold at this time (3) Hypothyroidism: Plan: continue syntnroid (4) Hyperlipidemia: Plan: hold atorvastatin Plan dvt prevention is asprin 81 mg bid Admission and Anticipated Discharge Date Admission Date: April 21, 2023 Subjective patient remains somewhat improved but still in a confused state with mumbling speech still reminding me of some tar dive type movements with expressionless facies. Patient denies alcohol use no focal loss with patient is decreased information systems consultant strength Physical Exam Physical Exam: patient awake and alert she knows she is in the hospital attempts to make conversation but cannot answer concrete orientation questions tremulous and weak to extremities Results & Data Results & Data Vital Signs (Past 12 Hours) Vital Signs Temp Pulse Resp BP O2 Del Method 04/22/23 12:18 98.6 F 82 18 143/83 H 04/22/23 08:00 Room Air Laboratory Results reviewed CBC reviewed chemistry PG Care Time/CCT Total # of Minutes Spent Total Time Spent with Patient: Total time spent is greater than 50% in coordination of care (as documented) at patient's floor/unit and/or counseling patient: Coding Level of Care Code 40633 SUB INP/OBS CARE 2/35MIN Diagnoses Primary osteoarthritis of right knee M17.11 Rheumatoid arthritis M06.9 Hypothyroidism E03.9 Hyperlipidemia E78.5
[2023-04-22] MEDS ORDERED: CeleBREX 200 MG CAP PO SCH (16:24)
[2023-04-22] MEDS ORDERED: THIAMINE HCL 200 MG in SODIUM CHLORIDE 0.9% 50 ML IV ONE (17:00)
[2023-04-22] MEDS: PANTOprazole 40 MG TAB PO SCH (17:20)
[2023-04-22] MEDS ORDERED: LORazepam 2 MG/1 ML VIAL IV PRN (17:47)
[2023-04-22] MEDS ORDERED: LORazepam 2 MG/1 ML VIAL IV STA (17:47)
--- NOTE | 2023-04-22 18:54 | CT Scan Report ---
CT head/brain wo con CLINICAL HISTORY: post op confusion Technique: Contiguous axial CT images of the head were acquired from the base of the skull to the fidelina dayanara without intravenous contrast administration. Images were viewed in brain, subdural and bone [facility] . Automated dose lowering techniques and/or adjustment according to patient size were utilized for this exam. Comparison: None available at the time of this dictation. Findings: Areas of decreased attenuation are present in the periventricular and subcortical white matter bilate rally consistent with small vessel ischemic disease. Generalized cerebral atrophy with commensurate e nlargement of the ventricles, sulci, and cisterns is also present. There is no acute intracranial hem orrhage or evidence of acute territorial infarction. No shift of the midline structures, mass effect, or extra-axial abnormalities are shown. Atherosclerotic calcifications are present in the intracran ial segments of the internal carotid arteries. Imaged portions of the paranasal sinuses and mastoid air cells are clear. 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 There are no acute fractures of the calvaria or scalp swelling. Impression: No acute intracranial hemorrhage, no evidence of acute territorial infarction or other acute intracra nial disease process. ACT 112: Negative or not required by law. Electronically signed by: Rashawn Bryan M.D. 04/22/2023 6:53 PM
[2023-04-23] MEDS ORDERED: LORazepam 2 MG/1 ML VIAL IV STA (04:39)
[2023-04-23] MEDS: ACETAMINOPHEN 500 MG TAB PO SCH ×3 (06:25→21:14)
[2023-04-23] MEDS: LEVOTHYROXINE SODIUM 25 MCG TABLET PO SCH (06:25)
[2023-04-23 07:14] LABS: Hematocrit (blood only) 26.9 % (37.0-47.0); Hemoglobin 9.4 g/dl (12.0-16.0); Mean Corpuscular Hemoglobin 33.3 pg (25.0-34.0); Mean Corpuscular Hgb Conc 34.9 g/dL (32.0-36.0); Mean Corpuscular Volume 95.4 fL (80.0-100.0); Platelet Count 313 K/uL (130-400); RDW Coefficient of Variation 14.3 % (11.5-14.5); RDW Standard Deviation 49.4 fL (36.4-46.3); Red Blood Count 2.82 M/uL (4.20-5.40)
[2023-04-23 07:34] LABS: BUN Creatinine Ratio 38.9 (10-20); Calcium 8.9 mg/dl (8.6-10.3); Creatinine Clr Calc Pharmacy 41.4 ml/min; Est GFR (Non-African American) 62.1 ml/min; Potassium 3.8 mmol/L (3.5-5.1)
--- NOTE | 2023-04-23 08:38 | Orthopedic Progress Note ---
Date of Service April 23, 2023 Assessment & Plan (1) Primary osteoarthritis of right knee: Plan: Postop day 2 status post right total knee arthroplasty Confusion-resolving PT/OT protocols. Weightbearing as tolerated. DVT prophylaxis-aspirin p.o. twice daily, Sofia, SONDRA garcia. Pain management-as written. Some medications on hold at this time. DC planning-speaking with the patient's , they will speak to case management and start considering the possibility of a rehab facility prior to returning home. We will see how she progresses with her physical therapy today. Admission and Anticipated Discharge Date Admission Date: April 21, 2023 Subjective Postop day 2 Patient sitting up in bed starting to eat her breakfast. Her is present with her. He states that she is much better this morning compared to yesterday. He states that they called him this morning around 4:30 AM stating that she was mentating much better. Patient is currently starting to eat her breakfast. She is answering questions appropriately but still takes her little bit of time to answer some questions but she is doing much better. She is following commands. Physical Exam Physical Exam: Dressings have been removed. Silverlon dressing is clean, dry, and intact. Calves are soft nontender. Neurovascular intact. Toes are mobile. Results & Data Vital Signs (Past 12 Hours) Vital Signs Temp Pulse Resp BP BP Pulse Ox O2 Del Method 04/23/23 07:45 36.9 C 88 18 122/72 94 Room Air 04/22/23 21:55 Nasal Cannula 04/22/23 23:54 36.9 C 85 20 120/73 96 Nasal Cannula O2 Flow Rate 04/23/23 07:45 04/22/23 21:55 1 04/22/23 23:54 1 Laboratory Results 04/23/23 04/23/23 Range/Units 06:37 06:37 WBC 9.80 (4.8-10.8) K/ul RBC 2.82 L (4.20-5.40) M/uL Hgb 9.4 L (12.0-16.0) g/dl Hct 26.9 L (37.0-47.0) % MCV 95.4 (80.0-100.0) fL MCH 33.3 (25.0-34.0) pg MCHC 34.9 (32.0-36.0) g/dL RDW Std Deviation 49.4 H (36.4-46.3) fL RDW Coeff of [place] 14.3 (11.5-14.5) % Plt Count 313 (130-400) K/uL MPV 9.0 L (9.4-12.4) fL Sodium 134 L (136-145) mmol/L Potassium 3.8 (3.5-5.1) mmol/L Chloride 102 (98-107) mmol/L Carbon Dioxide 23 (21-32) mmol/L Anion Gap 9 (3-11) BUN 35 H (6-23) mg/dl Creatinine 0.90 (0.6-1.2) mg/dl Est Cr Clr Drug Dosing 41.4 ml/min Est GFR ( Amer) 72.0 ml/min Est GFR (Non-Af Amer) 62.1 ml/min BUN/Creatinine Ratio 38.9 H (10-20) Glucose 91 (70-99(Fasting)) mg/dl Calcium 8.9 (8.6-10.3) mg/dl Magnesium 2.0 (1.7-2.4) mg/dl
[2023-04-23] MEDS: DOCUSATE SODIUM 100 MG CAP PO SCH ×2 (10:21→21:13)
[2023-04-23] MEDS: CeleBREX 200 MG CAP PO SCH (10:21)
[2023-04-23] MEDS: ASPIRIN 81 MG ECTAB PO SCH ×2 (10:21→21:14)
[2023-04-23] MEDS: PROPRANOLOL HCL 10 MG TAB PO SCH (10:21)
[2023-04-23] MEDS: MULTIVITAMIN TAB PO SCH (10:21)
[2023-04-23] MEDS: prednisoLONE acetate 1% OP SUSP 5 ML BTL OP SCH (10:21)
[2023-04-23] MEDS: THIAMINE HCL 100 MG in SYRINGE 9 ML IV SCH (10:22)
--- NOTE | 2023-04-23 16:34 | Hospitalist Progress Note ---
Date of Service April 23, 2023 Assessment & Plan (1) Primary osteoarthritis of right knee: Plan: status post right total knee arthroplasty 04/21/[address] Morrison has post procedure possible toxic encephalopathy from anesthesia, holding additional meds including home clomapramine decadron no acute changes on CT scan head, pending urine culture and continue thiamine therapy as some improvement but just maybe time away from perioperative state (2) Rheumatoid arthritis: Plan: Humara on hold at this time (3) Hypothyroidism: Plan: continue syntnroid (4) Hyperlipidemia: Plan: hold atorvastatin Plan dvt prevention is asprin 81 mg bid Admission and Anticipated Discharge Date Admission Date: April 23, 2023 Subjective patient is back to her normal state she is almost 60% back to normal according to her . She does have some masklike facies and some tremor which may be parkinsonian in nature which could be also part of her confusion. I personally discussed with orthopedics about possibly patient requiring rehab at time of discharge Physical Exam Physical Exam: patient awake and alert she knows she is in the hospital attempts to make conversation she is more cooperative and follows commands Results & Data Results & Data Vital Signs (Past 12 Hours) Vital Signs Temp Pulse Resp BP Pulse Ox O2 Del Method 04/23/23 07:45 98.4 F 88 18 122/72 94 Room Air Laboratory Results review cbc review chemistry PG Care Time/CCT Total # of Minutes Spent Total Time Spent with Patient: Total time spent is greater than 50% in coordination of care (as documented) at patient's floor/unit and/or counseling patient: Coding Level of Care Code 49024 SUB INP/OBS CARE 2/35MIN Diagnoses Primary osteoarthritis of right knee M17.11 Rheumatoid arthritis M06.9 Hypothyroidism E03.9 Hyperlipidemia E78.5
[2023-04-23] MEDS: PANTOprazole 40 MG TAB PO SCH (17:43)
[2023-04-24] MEDS: ACETAMINOPHEN 500 MG TAB PO SCH ×3 (05:42→21:34)
[2023-04-24] MEDS: LEVOTHYROXINE SODIUM 25 MCG TABLET PO SCH (05:42)
[2023-04-24 06:47] LABS: Hematocrit (blood only) 26.5 % (37.0-47.0); Hemoglobin 8.9 g/dl (12.0-16.0); Mean Corpuscular Hemoglobin 33.3 pg (25.0-34.0); Mean Corpuscular Hgb Conc 33.6 g/dL (32.0-36.0); Mean Corpuscular Volume 99.3 fL (80.0-100.0); Mean Platelet Volume 8.9 fL (9.4-12.4); Platelet Count 271 K/uL (130-400); RDW Coefficient of Variation 14.2 % (11.5-14.5); RDW Standard Deviation 51.6 fL (36.4-46.3); Red Blood Count 2.67 M/uL (4.20-5.40); White Blood Count 7.09 K/ul (4.8-10.8)
[2023-04-24 06:54] LABS: BUN Creatinine Ratio 32.2 (10-20); Calcium 8.6 mg/dl (8.6-10.3); Creatinine Clr Calc Pharmacy 41.4 ml/min; Est GFR (Non-African American) 62.1 ml/min
--- NOTE | 2023-04-24 08:32 | Hospitalist Progress Note ---
Date of Service April 24, 2023 Assessment & Plan (1) Primary osteoarthritis of right knee: Plan: Status post right total knee arthroplasty 04/21/[address] Morrison Had post procedure suspected toxic encephalopathy from anesthesia, holding additional meds for now including home clomipramine No acute changes on CT scan head, urine culture negative, continue thiamine therapy Hgb stable since surgery at 8.9 (was 10.2 on admission); anticipate improvement in the coming months (2) Rheumatoid arthritis: Plan: Humara on hold at this time (3) Hypothyroidism: Plan: Continue Synthroid (4) Hyperlipidemia: Plan: Hold atorvastatin Plan ASA BID per Ortho service Awaiting placement; discussed safety plan with family today as they are wondering if patient can go home until she is accepted to rehab facility. I discussed that this may be possible but also need to make sure patient is safe at home and has continuous support. Case Management is assisting with her placement process. Admission and Anticipated Discharge Date Admission Date: April 23, 2023 Subjective No acute events overnight. Per family she is more alert and herself today. She endorses some right knee pain but otherwise has no complaints including no chest pain or SOB. Had a BM yesterday. Review of Systems Review of Systems: All systems reviewed & are unremarkable except as noted in Subjective Physical Exam Constitutional: WD/WN, vitals as above Respiratory: normal respiratory effort, lungs clear to auscultation Cardiovascular: RRR, no murmur, no edema Musculoskeletal: dressing to right knee intact and not removed by this provider see Ortho notes Skin: no rashes, warm and dry Psychiatric: A+Ox3, euthymic affect Results & Data Results & Data Vital Signs (Past 12 Hours) Vital Signs Temp Pulse Pulse Resp BP BP Pulse Ox 04/24/23 07:37 36.6 C 87 16 145/88 H 99 04/23/23 21:34 36.6 C 85 16 107/67 95 O2 Del Method 04/24/23 07:37 Room Air 04/23/23 21:34 Room Air PG Care Time/CCT Total # of Minutes Spent Total Time Spent with Patient: Total time spent is greater than 50% in coordination of care (as documented) at patient's floor/unit and/or counseling patient: Coding Level of Care Code 15883 SUB INP/OBS CARE 2/35MIN Diagnoses Primary osteoarthritis of right knee M17.11 Rheumatoid arthritis M06.9 Hypothyroidism E03.9 Hyperlipidemia E78.5
[2023-04-24] MEDS: THIAMINE HCL 100 MG in SYRINGE 9 ML IV SCH (09:42)
[2023-04-24] MEDS: MULTIVITAMIN TAB PO SCH (09:42)
[2023-04-24] MEDS: PROPRANOLOL HCL 10 MG TAB PO SCH (09:42)
[2023-04-24] MEDS: DOCUSATE SODIUM 100 MG CAP PO SCH ×2 (09:42→19:52)
[2023-04-24] MEDS: ASPIRIN 81 MG ECTAB PO SCH ×2 (09:42→19:52)
[2023-04-24] MEDS: CeleBREX 200 MG CAP PO SCH (09:43)
[2023-04-24] MEDS: prednisoLONE acetate 1% OP SUSP 5 ML BTL OP SCH (09:43)
--- NOTE | 2023-04-24 12:52 | Orthopedic Progress Note ---
Date of Service April 24, 2023 Assessment & Plan (1) Primary osteoarthritis of right knee: Plan: Postop day 3 status post right total knee arthroplasty Confusion-resolved PT/OT protocols. Weightbearing as tolerated. DVT prophylaxis-aspirin p.o. twice daily, Sofia, SONDRA garcia. Pain management-as written. DC planning-patient will require [facility] facility. Case management currently working on placement. Admission and Anticipated Discharge Date Admission Date: April 23, 2023 Subjective Postop day 3 Patient sitting up in her chair at the bedside eating her lunch. She is accompanied by her family. Family states that she has been more active today and was up with physical therapy ambulating in the room. Patient has no comp laints at the present time. Pain is controlled. Physical Exam Physical Exam: Silverlon dressing is clean, dry, and intact. Calves are soft nontender. Neurovascular is intact. Toes are mobile. Results & Data Vital Signs (Past 12 Hours) Vital Signs Temp Pulse Resp BP Pulse Ox O2 Del Method 04/24/23 07:37 36.6 C 87 16 145/88 H 99 Room Air
[2023-04-24] MEDS: PANTOprazole 40 MG TAB PO SCH (18:05)
[2023-04-24] MEDS ORDERED: ATORVASTATIN 20 MG TAB PO SCH (21:00)
[2023-04-25] MEDS: ACETAMINOPHEN 500 MG TAB PO SCH (05:44)
[2023-04-25] MEDS: LEVOTHYROXINE SODIUM 25 MCG TABLET PO SCH (05:45)
[2023-04-25 07:21] LABS: Hematocrit (blood only) 28.2 % (37.0-47.0); Hemoglobin 9.6 g/dl (12.0-16.0); Mean Corpuscular Hemoglobin 32.7 pg (25.0-34.0); Mean Corpuscular Volume 95.9 fL (80.0-100.0); Mean Platelet Volume 9.1 fL (9.4-12.4); Platelet Count 307 K/uL (130-400); RDW Coefficient of Variation 14.3 % (11.5-14.5); RDW Standard Deviation 50.2 fL (36.4-46.3); Red Blood Count 2.94 M/uL (4.20-5.40); White Blood Count 7.68 K/ul (4.8-10.8)
[2023-04-25 07:39] LABS: BUN Creatinine Ratio 24.7 (10-20); Calcium 8.7 mg/dl (8.6-10.3); Creatinine Clr Calc Pharmacy 48.4 ml/min; Est GFR (African American) 86.9 ml/min; Potassium 3.8 mmol/L (3.5-5.1)
--- NOTE | 2023-04-25 07:42 | Hospitalist Progress Note ---
Date of Service April 25, 2023 Assessment & Plan (1) Toxic encephalopathy: Plan: No acute changes on CT scan head, urine culture negative Had post procedure suspected toxic encephalopathy from anesthesia, can resume home clomipramine on discharge as patient is back to normal mental status Agree with patient/family that home with HH/outpatient therapy may be best course of action given her episodes of sundowning I am suspicious of Parkinson's-like syndrome, recommened follow up with PCP (2) Primary osteoarthritis of right knee: Plan: Status post right total knee arthroplasty 04/21/[address] Morrison Hgb stable since surgery at 9.6 (was 10.2 on admission) (3) Rheumatoid arthritis: Plan: Humara can resume on discharge (4) Hypothyroidism: Plan: Continue Synthroid (5) Hyperlipidemia: Plan: Resume atorvastatin Plan ASA BID per Ortho service Discharge home today. Gave return precautions to family, specifically if her care needs or confusion become worse Admission and Anticipated Discharge Date Admission Date: April 23, 2023 Subjective Overnight called asking him where he was, easily redirectable. is concerned about her getting more confused at SNF facility and wants to take her home. She denies chest pain, SOB, nausea. She is not confused this morning. Review of Systems Review of Systems: All systems reviewed & are unremarkable except as noted in Subjective Physical Exam Constitutional: WD/WN, vitals as above Musculoskeletal: dressing to right knee intact and not removed by this provider see Ortho notes Skin: no rashes, warm and dry Psychiatric: A+Ox3, euthymic affect Results & Data Results & Data Vital Signs (Past 12 Hours) Vital Signs Temp Pulse Pulse Resp BP Pulse Ox O2 Del Method 04/25/23 07:36 36.9 C 84 18 158/100 H 98 Room Air 04/24/23 22:53 36.9 C 87 18 160/97 H 99 Room Air 04/24/23 19:48 36.7 C 79 18 126/85 96 Room Air PG Care Time/CCT Total # of Minutes Spent Total Time Spent with Patient: Total time spent is greater than 50% in coordination of care (as documented) at patient's floor/unit and/or counseling patient: Coding Level of Care Code 23098 SUB INP/OBS CARE 2/35MIN Diagnoses Toxic encephalopathy G92.9 Primary osteoarthritis of right knee M17.11 Rheumatoid arthritis M06.9 Hypothyroidism E03.9 Hyperlipidemia E78.5
[2023-04-25] MEDS: DOCUSATE SODIUM 100 MG CAP PO SCH (08:59)
[2023-04-25] MEDS: MULTIVITAMIN TAB PO SCH (08:59)
[2023-04-25] MEDS: CeleBREX 200 MG CAP PO SCH (08:59)
[2023-04-25] MEDS: ASPIRIN 81 MG ECTAB PO SCH (08:59)
[2023-04-25] MEDS: PROPRANOLOL HCL 10 MG TAB PO SCH (08:59)
[2023-04-25] MEDS: prednisoLONE acetate 1% OP SUSP 5 ML BTL OP SCH (09:00)
[2023-04-25] MEDS ORDERED: THIAMINE HCL 100 MG TAB PO SCH (09:00)
--- NOTE | 2023-04-25 10:29 | Orthopedic Progress Note ---
Date of Service April 25, 2023 Assessment & Plan (1) Primary osteoarthritis of right knee: Plan: Postop day 4 status post right total knee arthroplasty Confusion-resolved PT/OT protocols. Weightbearing as tolerated. DVT prophylaxis-aspirin p.o. twice daily, Sofia, SONDRA garcia. Pain management-as written. DC planning-plan for home health services upon discharge. Admission and Anticipated Discharge Date Admission Date: April 23, 2023 Subjective Postop day 4 Patient sitting up in bed awake and alert. Answering questions appropriately. Her family is present. There have been attempts to get her placed in rehab near where they reside however the family feels that they would rather take her home and any residual confusion that has been happening off and on would be better served at her home. They are comfortable with taking care of her. This has been discussed with the hospitalist service as well as case management. She has no complaints today. Physical Exam Physical Exam: Silverlon dressing is clean, dry, and intact. Calves are soft nontender. Neurovascular intact. Toes are mobile. Results & Data Vital Signs (Past 12 Hours) Vital Signs Temp Pulse Resp BP Pulse Ox O2 Del Method 04/25/23 07:36 36.9 C 84 18 158/100 H 98 Room Air 04/24/23 22:53 36.9 C 87 18 160/97 H 99 Room Air
--- NOTE | 2023-04-28 14:41 | Discharge Summary ---
Date of Service April 28, 2023 Admission HPI Per Admitting Provider Hien is a 77-year-old woman with right knee pain for several years. After failure of conservative treatment I recommended proceeding with a right total knee replacement. I explained the risk benefits and alternatives to her and she consented to proceed. Principal Diagnosis Right Knee osteoarthritis Discharge Exam Silverlon dressing is clean, dry, and intact. Calves are soft nontender. Neurovascular intact. Toes are mobile. Discharge Data Allergies Allergy/AdvReac Type Severity Reaction Status Date / Time No Known Allergies Allergy Verified 04/21/23 09:18 Consultations 04/21/23 13:08 Consult Hospitalist Routine Procedures Performed Operation Date: 04/21/23 10:55 Actual Procedures p Right Total Knee Arthroplasty, Cemented(Right) - Miky Morrison MD Ordered Studies 04/21/23 05:00 US - OR guided needle placemen Routine 04/22/23 16:14 CT head/brain wo con Routine Hospital Course (1) Primary osteoarthritis of right knee: Postop day 4 status post right total knee arthroplasty Confusion-resolved PT/OT protocols. Weightbearing as tolerated. DVT prophylaxis-aspirin p.o. twice daily, SCDs, SONDRA hose. Pain management-as written. DC planning-plan for home health services upon discharge. Total Time Total Time Spent Total Time Spent (In Minutes): 30 minutes Discharge Plan Discharge Items Patient Disposition: Home - Home Health Services Reason For Visit: Right Knee Osteoarthritis Discharge Diagnosis: Right Knee Osteoarthritis Activity: Per Instructions section Weightbearing: Right weightbearing Weightbearing Comment: as tolerated with walker Non-emergency contact: Surgeon Call non-emergency contact if: you have any medication questions, your pain is not controlled, your temperature is above 101.5, your wound has increased redness and your wound has increased drainage Follow-up/Referrals: Miky Morrison MD [Surgeon] - (Follow up with Dr Morrison in 2 weeks from the day of your surgery for your first post operative visit. ) Goldy Tineo DO [Primary Care Provider] - Diet: Regular Addtl Attending Provider Instructions: Take aspirin 81mg twice daily x 30 days for DVT prophylaxis. Take cefadroxil 500mg twice daily x 14 days. Take Celebrex 200mg twice daily x 30 days. Aspirin, cefadroxil, Celebrex, Tylenol, oxycodone, and Zofran sent to patient's pharmacy by [facility]. Silverlon to remain in place until patient is 7 days post-op. Patient can shower 7 days following surgery. Do not submerge the knee. Weightbearing as tolerated. Patient should already have walker. To be discharged home with home nursing and home PT. Discharge instructions from [facility] to be given to patient at discharge. These are in their chart. Pending Studies at Discharge: No Stand-Alone Forms: My [facility], Smoking Cessation Medications and DC Order Prescriptions: New aspirin 81 mg Tablet,Delayed Release (Dr/Ec) 81 mg PO BID 30 Days Qty: 60 0RF acetaminophen [Tylenol Extra Strength] 500 mg Tablet 1,000 mg PO Q8 14 Days Qty: 84 0RF Continued atorvastatin 20 mg Tablet 20 mg PO PM clomipramine 75 mg Capsule 150 mg PO HS levothyroxine 25 mcg Tablet 25 mcg PO QAM propranolol 10 mg Tablet 10 mg PO QAM prednisolone acetate 1 % Drops,Suspension 1 drp OPHTHALMIC (EYE) DAILY omeprazole 20 mg Tablet,Delayed Release (Dr/Ec) 20 mg PO QDD Held Humira 40 mg/0.8 mL Syringe Kit 1 dose subcut UD Hold Instructions: Hold for 2 weeks from the day of your surgery. Please discuss with your physician on when to restart. Rx Instructions: Q 2 WEEKS-LAST DOSE 10/24/18 Discontinued aspirin [Aspir-81] 81 mg Tablet,Delayed Release (Dr/Ec) 81 mg PO PM acetaminophen 500 mg Tablet 1,000 mg PO BID PRN (Reason: Pain) Discharge Orders: Discharge Order (Routine); Ordered 04/25/23 Ordered By: Ghassan Barahona/Other Patient Handouts: DVT Post Op Prevention Admission Data Admit Date/Time: 04/23/23 14:00 Attending Provider: Miky Morrison Admit Provider: Miky Morrison Primary Care Provider: Goldy Tineo Other Providers: Martínez Gamez ; Lissett Ponce Other Interventions: Discharge Summary Assessment (RN) Last Done: 04/25/23 11:24
== END 2023-04-25 12:30 | disposition home health service (06) | DRG 469 ==
LOC: 3E 08:25 → ASU 08:25